=== PATIENT | male | born 1955 | race Caucasian/White ===

== ENCOUNTER 2016-06-01 18:48 | Inpatient (IN) | payer OTHER ==
--- NOTE | ~2016-06-01 | CR72 ---
[facility] A Service of [facility] & [facility] RADIOLOGY TEXT RESULTS PATIENT: HUE COTTON LOCATION: CEDOF 19999-78 : 53 UNIT #: [id number] AGE: [address]: Susie Guillen MD SEX: M ORDER DR: [id number] [facility] [address] [place], [place] [address] [id number] I MR#: [id number] Acc #: [id number] NAME: HUE COTTON : 1955 SEX: M STUDY DATE/TIME: 06/01/2016 18:58 UNIT: CEDOF ROOM: 08429 STUDY DESCRIPTION: CR Chest Single View Portable Attending Physician: Susie Guillen M.D. Ordering Physician: Ronaldo Nicholson D.O. Primary Care Physician: No Primary Care Physician MEDICAL IMAGING REPORT This report is preliminary unless electronic signature is present EXAM Chest x-ray HISTORY Headache, neck pain, radiates into upper back. Symptoms started at 05:00 a.m. no injury. History of pneumonia, sepsis, renal failure, smoker, hypertension and COPD. COMMENT Frontal views of the chest reviewed from 18:58 06/01/2016. 2 films submitted. Comparison 05/01/2016. There is mild cardiac silhouette enlargement. There is underlying chronic lung disease with distortion of pulmonary parenchymal architecture but I believe there is worse airspace disease/interstitial lung disease at the right base when comparison is made to the earlier film. Disease at the left base probably similar. There is no congestive failure, pleural effusion or pneumothorax. Heart size is top normal and unchanged. IMPRESSION Underlying chronic lung disease with some probable worsening of airspace/interstitial disease at the right base. No change in the appearance of the left base when comparison is made to 05/01/2016. No congestive failure, pleural effusion or pneumothorax. Dictated by... Lucretia Argueta M.D. THIS IS AN ELECTRONICALLY VERIFIED REPORT Lucretia Argueta M.D. at 06/02/2016 12:18 PM SAC/df TD: 06/02/2016 11:55 [facility] A Service of [facility] & [facility] RADIOLOGY TEXT RESULTS PATIENT: HUE COTTON LOCATION: [facility] 20027-23 : 53 UNIT #: [id number] AGE: [address]: Susie Guillen MD SEX: M ORDER DR: JOB #: [id number] MEDICAL IMAGING REPORT Page 1 of 1 COPY
--- NOTE | ~2016-06-01 | CO ---
Unit #: [id number] #: [id number] Patient: HUE COTTON [id number] [address] [address] [id number] I MR#: [id number] NAME: HUE COTTON ROOM: 319 Age: 60 Sex: M Admission Date: 06/02/2016 : 1955 Attending Physician: Susie Guillen M.D. Primary Care Physician: Primary Care Physician No Consultation Date: 06/02/2016 CONSULTATION REPORT REASON FOR CONSULTATION Pneumonia. CHIEF COMPLAINT Neck pain and cough, increasing sputum production. HISTORY OF PRESENT ILLNESS This 60-year-old male with past medical history significant for recurrent COPD exacerbation and chronic hypoxic respiratory failure, history of C difficile and abdominal surgery, presents with the complaint of cough, shortness of breath, increasing sputum production. I am seeing the patient at bedside. Denies any nausea, vomiting or diarrhea. PAST MEDICAL HISTORY 1. Chronic respiratory failure. 2. COPD. 3. Hypertension. 4. BPH. 5. Tobacco use. 6. Colon resection. 7. Colostomy. 8. PEG tube placement. 9. History of C difficile. 10. Diabetes mellitus. PAST SURGICAL HISTORY 1. PEG tube placement. 2. Toxic megacolon. 3. Hemorrhoidectomy. 4. TURP. 5. Hernia surgery. HOME MEDICATIONS As per MAR. Has been reviewed. ALLERGIES No known drug allergies. SOCIAL HISTORY Positive for smoking. No alcohol, no drug abuse. PHYSICAL EXAMINATION VITAL SIGNS: Temperature 98, pulse 67, respirations 12, blood pressure 130/70. Unit #: [id number] #: [id number] Patient: HUE COTTON NEUROLOGIC: Awake, alert, oriented. No neurologic deficits. HEENT: PERRLA. EOMI. NECK: Supple, no JVD. LUNGS: Bilateral air entry, bilateral mild rhonchi. ABDOMEN: Nontender, soft. Positive bowel sounds. EXTREMITIES: No edema. SKIN: No rashes, no ulcers. LYMPHATIC: No lymphadenopathy. DIAGNOSTIC STUDIES LABORATORY: Reviewed. IMAGING: Reviewed. ASSESSMENT AND PLAN 1. Acute exacerbation of chronic obstructive pulmonary disease. 2. Kdtaj-lz-gaczvib hypoxic hypercapnic respiratory failure. 3. Acute bronchitis. 4. Pneumonia. PLAN 1. Admit patient. 2. Continue broad-spectrum IV antibiotics. 3. GI and DVT prophylaxis. 4. I will order a noncontrast CT of the chest. 5. Procalcitonin level. 6. Further recommendations. 7. Please see orders for detailed plans. Dictated by... Tiara Franklin/pita TD: 06/04/2016 21:30 JOB #: [id number] CONSULTATION REPORT Page 1 of 1 X Talia Chow MD X CONSULTATION REPORT
--- NOTE | ~2016-06-01 | DS ---
Unit #: [id number] #: [id number] Patient: HUE COTTON [id number] [address] [address] [id number] I MR#: [id number] NAME: HUE COTTON ROOM: 319 Age: 60 Sex: M Admission Date: 06/02/2016 : 1955 Discharge Date: 06/05/2016 Attending Physician: Susie Guillen M.D. Primary Care Physician: Primary Care Physician No DISCHARGE SUMMARY DISCHARGE DIAGNOSES 1. Pneumonia. 2. Urinary tract infection. 3. Chronic obstructive pulmonary disease. 4. Diabetes. 5. History of coronary artery disease. 6. History of congestive heart failure. 7. Anemia of chronic disease. CONSULTS ON THIS HOSPITAL STAY Dr. Chow - pulmonary DIAGNOSTIC PROCEDURES DURING THIS HOSPITAL STAY 1. Chest x-ray on admission, chronic lung disease with the underlying air space disease in the right base. 2. CT of the head without contrast, on admission, qifyo-gz-bthzava sinusitis, small vessel disease, sequelae. No acute findings. 3. CT chest without contrast, marked improvement of the bilateral lower lobe tree-in-bud densities seen on prior studies, bronchial wall thickening consistent with the chronic bronchitis, 8 mm somewhat nodular subpleural density at the superior aspect of the left lower lobe, no change from April 2016 but new compared to January 2015, favored to be nodule scarring but neoplastic nodule could not be excluded, should follow up in three months recommended. 4. Blood culture negative. 5. Sputum culture showed pneumonias aeruginosa, sensitive to Levaquin. 6. Urine culture enterococcus cloacae, sensitive to Levaquin. HISTORY OF PRESENT ILLNESS AND HOSPITAL STAY Please refer to history and physical done by my colleague at presentation on this admission. ACTIVE PROBLEMS AND DIAGNOSIS Pneumonia, was treated with IV antibiotics, status post evaluation by pulmonary, stable to be discharged from pulmonary standpoint, continue p.o. Levaquin. Urinary tract infection, culture as above, again continue with the Levaquin. Chronic obstructive pulmonary disease, stable, continue bronchodilators, evaluation per pulmonary. Unit #: [id number] #: [id number] Patient: HUE COTTON History of coronary artery disease and diastolic congestive heart failure, stable, continue home medications. Anemia of chronic disease, stable, also, last hematocrit and hemoglobin was 28.1 and 8.6. DISCHARGE MEDICATIONS 1. Pulmicort inhaler b.i.d. 2. Perforomist nebulizer b.i.d. 3. DuoNeb inhaler q.4h 4. Flomax 0.4 mg at bedtime 5. Tylenol p.r.n. 6. Mag oxide 400 mg b.i.d. 7. Neurontin 100 mg q.i.d. 8. Acidophilus 100 mg p.o. daily 9. Bentyl q.i.d. p.r.n. for abdominal cramps 10. Seroquel 12.5 mg at bedtime 11. Home dose of Xanax 0.25 mg b.i.d. p.r.n. 12. Cardizem 60 mg b.i.d. 13. Guaifenesin 200 mg b.i.d. 14. Ditropan 5 mg p.o. t.i.d. 15. Niferex tablets daily 16. Singulair 10 mg daily 17. Multivitamin daily 18. Letona 10 q.6h p.r.n. 19. Protonix 40 mg daily 20. Levaquin 750 mg p.o. daily for ten days 21. KCL home dose daily 22. Folic acid 1 mg daily 23. Vitamin B 100 mg daily which is thiamine 24. Vitamin D 1000 units b.i.d. 25. Florastor 250 mg b.i.d. FOLLOWUP Follow up with primary care physician in hrt-vc-wiezz days, outpatient follow up with pulmonary. Dictated by... Tiara Suggs/ceasar TD: 06/06/2016 08:14 JOB #: [id number] DISCHARGE SUMMARY Page 1 of 1 X Paul Bolton MD X DISCHARGE SUMMARY
--- NOTE | ~2016-06-01 | HP ---
Unit #: [id number] #: [id number] Patient: HUE RIVAS [id number] [address] [place], [place] [address] [id number] I MR#: [id number] NAME: HUE RIVAS ROOM: 30358 Age: 60 Sex: M Admission Date: 06/02/2016 : 1955 Attending Physician: Susie Guillen M.D. Primary Care Physician: No Primary Care Physician HISTORY AND PHYSICAL CHIEF COMPLAINT Neck pain and cough with thick sputum. HISTORY OF PRESENT ILLNESS Mr. Rivas is a 60-year-old male who has had multiple admissions to the hospital. He resides in the senior care. Was recently discharged from the hospital on April 19, 2016 after being treated for COPD exacerbation. According to the patient, he had severe neck pain, which was going down the spine yesterday morning, and he was trying to avoid coming to the hospital. Took some medications, got a little bit better, but again in the evening he started having worsening of pain, and the patient was sent to the ER. The patient has received some pain medications. A CT scan of the head was done. Preliminary results are negative acute etiology. Also, LP has been done and, so far, negative. According to the patient, neck pain is much better. He actually feels well enough to go back. He is also complaining of cough, which has been going on for the last few days that is bringing up thick yellowish colored sputum, and sometimes it is very dark colored. He does not complain of fever, chills or rigors. He does not complain of chest pain. He does have wheezing, but according to him, he has wheezing all the time. No complaint of nausea, vomiting or dizziness or blurred vision. PAST MEDICAL HISTORY 1. Chronic respiratory failure, on home O2. 2. COPD. 3. Hypertension. 4. BPH. 5. Tobacco abuse. 6. History of colon resection with colostomy. 7. PEG tube placement. 8. Multiple UTIs in the past. 9. History of bladder outlet obstruction. Has a Jackson catheter. 10. History of coronary artery disease and diastolic congestive heart failure in the past. 11. Diabetes mellitus type 2. PAST SURGICAL HISTORY 1. History of toxic megacolon status post colon resection with colostomy and history of colon cancer. 2. PEG tube placement. 3. Hemorrhoidectomy. 4. TURP. Unit #: [id number] #: [id number] Patient: HUE RIVAS 5. Hernia surgery. 6. Nose surgery in the past. SOCIAL HISTORY The patient has history of tobacco abuse and continued to smoke 1/2 pack per day. No history of alcohol abuse or drug abuse. ALLERGIES None. FAMILY HISTORY The patient's sister was diagnosed with colon cancer. REVIEW OF SYMPTOMS As per history of present illness. There is no history of fever, chills or rigors. No history of chest pain. No history of abdominal pain. No history of nausea or vomiting. No history of blurred vision. No dizziness or syncopal episode. No history of leg swelling. PHYSICAL EXAMINATION GENERAL: The patient is lying in bed. Does not seem to be in any respiratory distress. He is able to flex his neck. VITAL SIGNS: Blood pressure is 109/82, respiratory rate 17, pulse 88, temperature 97.2, oxygen saturation 93%. HEENT: Head is normocephalic. The patient does have oxygen on with nasal cannula. NECK: Neck, at this time, is supple, and he is not complaining of pain. He is able to move his neck in all directions. BACK: No spine tenderness. RESPIRATORY: Chest has decreased air entry bilaterally. Wheezing is heard. CVS: S1, S2 positive. Regular rhythm. ABDOMEN: Soft. PEG tube is in place and colostomy bag in place. Seems to be stable. Abdomen is soft, nontender. Bowel sounds are positive. EXTREMITIES: Negative edema. : Jackson catheter is in place. RN LVN: The patient seems to be awake and alert. Oriented x3. Exam was limited. DIAGNOSTIC STUDIES LABORATORY: Lab workup done in the ER shows WBC 13.7, hemoglobin 9.6, hematocrit 30.7, platelet count 395. Sodium 138, potassium 3.7, chloride 97, bicarb 33, BUN 8, creatinine 0.4. Influenza A and B is negative. Urinalysis shows 3+ leukocyte esterase, nitrite positive. BNP is 34. CSF glucose is 64, protein 47, appearance clear, WBC count 0. Lactic acid 0.8, procalcitonin level 0.11. IMAGING: Chest x-ray, preliminary result - Right lower lobe infiltrate. Preliminary CT scan of the head shows chronic changes and cerebral atrophy. ASSESSMENT AND PLAN 1. The patient is being admitted to telemetry unit with severe neck pain, which has improved at this time. Could be musculoskeletal. CT scan of the head was done, which is stable. LP has been done; so far stable. 2. Right lower lobe infiltrate. Possible healthcare-acquired pneumonia. Unit #: [id number] #: [id number] Patient: HUE RIVAS The patient is being started on broad-spectrum IV antibiotics. Dr. Chow will be consulted. 3. Probable UTI. Urine culture has been sent. The patient does have 3+ leukocyte esterase. He does have indwelling Jackson catheter. 4. Chronic obstructive pulmonary disease. Seems to be stable. Continue home medications. 5. Diabetes mellitus. Do Accu-Cheks a.c. and h.s. and insulin sliding scale as needed. 6. Hypertension. Seems to be stable. 7. History of seizure disorder in the past, although details are not known. 8. Home medications have been reviewed and adjusted. Please refer to med/rec. 9. Plan of care has been discussed with the patient. Please refer to progress note for further orders. Dictated by Tiara Barragan/sia TD: 06/02/2016 14:58 JOB #: [id number] HISTORY AND PHYSICAL Page 1 of 1 X Susie Guillen MD X HISTORY AND PHYSICAL
--- NOTE | ~2016-06-01 | XA166 ---
[facility] A Service of [facility] & [facility] RADIOLOGY TEXT RESULTS PATIENT: HUE COTTON LOCATION: C3A PC 319-01 : 53 UNIT #: [id number] AGE: [address]: Susie Guillen MD SEX: M ORDER DR: [id number] [facility] [address] [place], [place] [address] [id number] I MR#: [id number] Acc #: [id number] NAME: HUE COTTON : 1955 SEX: M STUDY DATE/TIME: 06/03/2016 14:28 UNIT: C3A PCU ROOM: 319 STUDY DESCRIPTION: XA PICC Line Placement WO Port Attending Physician: Susie Guillen M.D. Ordering Physician: Susie Guillen M.D. Primary Care Physician: Primary Care Physician No MEDICAL IMAGING REPORT This report is preliminary unless electronic signature is present EXAM PICC line insertion, 06/03/2016 CLINICAL HISTORY IV access needed PRE-PROCEDURE The procedure was explained to the patient and/or patient bilingual sales representative including risks, benefits, potential complications and potential for alternative forms of treatment. Informed consent was obtained, and prior to initiating the procedure a formal timeout procedure was performed. PROCEDURE Using full standard sterile barrier technique, including caps, gowns, gloves, masks, as well as sterile skin preparation and standard sterile draping, the right arm was prepped and draped in the usual fashion, and real-time sterile ultrasound guidance was used to localize an arm vein and to confirm vessel patency. A hard copy ultrasound image was recorded. After local anesthesia with 1% Xylocaine, the vein was punctured using real-time sterile ultrasound guidance, and an 0.018 guidewire was advanced into the superior vena cava, using fluoroscopic guidance. A 5 Israeli dual-lumen PICC was then measured and deployed with the tip positioned in the superior vena cava. The position of the line was documented with a radiographic image. The line was secured in place with an adhesive dressing and an antibiotic patch was applied. Total fluoro time was 0.4 minutes. Single spot image. IMPRESSION Successful placement of a 5-Israeli dual-lumen PowerPICC via the right arm under ultrasound and fluoroscopic guidance. The tip of the PICC is in good position in the superior vena cava. [facility] A Service of [facility] RADIOLOGY TEXT RESULTS PATIENT: HUE COTTON LOCATION: C3A 319-01 : [birth year] UNIT #: [id number] AGE: [address]: Susie Guillen MD SEX: M ORDER DR: Dictated by... Fredy Sebastian M.D. THIS IS AN ELECTRONICALLY VERIFIED REPORT Fredy Sebastian M.D. at 06/11/2016 4:56 PM NANCY/carol TD: 06/07/2016 13:15 JOB #: [id number] MEDICAL IMAGING REPORT Page 1 of 1 COPY
--- NOTE | ~2016-06-01 | CT57 ---
[facility] A Service of [facility] RADIOLOGY TEXT RESULTS PATIENT: HUE COTTON LOCATION: C3A 319-01 : [birth year] UNIT #: [id number] AGE: [address]: Susie Guillen MD SEX: M ORDER DR: [id number] [facility] [address] [place], [place] [address] [id number] I MR#: [id number] Acc #: [id number] NAME: HUE COTTON : 1955 SEX: M STUDY DATE/TIME: 06/03/2016 14:33 UNIT: A PCU ROOM: 319 STUDY DESCRIPTION: CT Chest Wo Cont Attending Physician: Susie Guillen M.D. Ordering Physician: Susie Guillen M.D. Primary Care Physician: No Primary Care Physician MEDICAL IMAGING REPORT This report is preliminary unless electronic signature is present EXAM CT chest 06/03/2016 HISTORY COPD, cardiac hypertension, stroke, toxic megacolon, pneumonia, upper back pain since 06/01/2016. TECHNIQUE CT chest performed without administration of intravenous contrast. This CT exam was performed with one or more of the following radiation dose reduction techniques: automatic exposure control, adjustment of mA and/or kV according to patient size, and iterative reconstruction. COMPARISON STUDIES Comparison 04/14/2016 FINDINGS Thyroid unremarkable. No axillary adenopathy. No mediastinal adenopathy. There are small subcentimeter mediastinal nodes stable to marginally less pronounced than on prior study. Heart normal in size. Trace pericardial fluid. No change. Coronary arterial calcifications. No pleural effusion. The visualized portions of the liver are unremarkable. The gallbladder is decompressed. No biliary dilatation. Spleen, pancreas, adrenal glands, left upper renal pole unremarkable. Esophagus unremarkable. Gastrostomy tube unchanged. Visualized stomach, small bowel otherwise unremarkable. The pulmonary parenchyma shows underlying emphysema. Mild bronchial wall thickening. Likely reflecting some degree of underlying chronic bronchitis. Bronchial wall thickening more pronounced in the mid to lower lung zones bilaterally. It is stable to slightly improved in the bilateral ifj-te-adinz lung zones, with particular improvement in the left wdw-fw-nbwyu lung zone though it remains more pronounced overall on the left than right. There are mild STS. [facility] A Service of [facility] RADIOLOGY TEXT RESULTS PATIENT: HUE COTTON [id number] [birth year] UNIT #: [id number] AGE: [address]: Susie Guillen MD SEX: M ORDER DR: linear densities in the dependent portions of the lungs bilaterally favored to represent combination of scarring and linear atelectasis. The patchy tree-in-bud densities seen on prior examination have almost completely resolved. No residual tree-in-bud densities in the right lower lobe. Some very minimal residual tree in bud densities left lower lobe. There is an area of somewhat nodular subpleural density in the most superior aspect of the superior segment of the left lower lobe. No change from April 2016. New compared to a CT of the chest dated 01/25/2015. I favor that this is an area of subpleural scarring. True pulmonary nodule not excluded. 3-month CT followup recommended. Band-like area of scarring in the lateral upper to mid right lower lobe stable. Scattered atherosclerotic arterial calcifications in coronary and systemic circulation. No aneurysm. Bony structures show no acute appearing abnormality. IMPRESSION 1. There has been a marked improvement in the bilateral lower lobe reticulonodular/tree-in-bud densities seen on prior study from April 14, 2016. Findings in the right lower lobe have completely resolved. Findings in the left lower lobe are almost completely resolved. 2. There is underlying baseline bronchial wall thickening consistent with component of chronic bronchitis. Bronchial wall thickening more pronounced in the nmz-be-sxakv lung zones bilaterally. Bronchial wall thickening remains more pronounced in the left qtv-fz-kstvr lung zone than right but there has been improvement in the left npy-cq-oqrzi lung zone. 3. There are areas of linear scarring and atelectasis which are stable. See above. 4. 8 mm somewhat nodular subpleural density at the most superior aspect of the left lower lobe superior segment. No change from April 2016 but new compared to January 2015. I favor that this is an area of somewhat nodular scarring but true neoplastic nodule not excluded, and short-interval followup in 3 months is strongly recommended given the patient's underlying emphysema. 5. Atherosclerotic arterial calcifications in the coronary and systemic circulation. 6. Gastrostomy tube. No acute-appearing abnormality in the visualized upper abdomen. Dictated by... Carlos De La Torre M.D. THIS IS AN ELECTRONICALLY VERIFIED REPORT Carlos De La Torre M.D. at 06/04/2016 8:05 PM [place] TD: 06/03/2016 16:40 JOB #: [id number] [facility] A Service of [facility] RADIOLOGY TEXT RESULTS PATIENT: HUE COTTON LOCATION: [facility] 319-01 : 53 UNIT #: [id number] AGE: [address]: Susie Guillen MD SEX: M ORDER DR: MEDICAL IMAGING REPORT Page 1 of 1 COPY
--- NOTE | ~2016-06-01 | CT71 ---
[facility] A Service of [facility] RADIOLOGY TEXT RESULTS PATIENT: HUE COTTON LOCATION: [facility] 14508-06 : 53 UNIT #: [id number] AGE: [address]: Susie Guillen MD SEX: M ORDER DR: [id number] [facility] [address]. [place], [place] [address] [id number] MR#: [id number] Acc #: [id number] NAME: HUE COTTON : 1955 SEX: M STUDY DATE/TIME: 06/01/2016 20:23 UNIT: [facility] ROOM: 27041 STUDY DESCRIPTION: CT Head Wo Contrast Attending Physician: Susie Guillen M.D. Ordering Physician: Ronaldo Nicholson D.O. Primary Care Physician: Primary Care Physician No MEDICAL IMAGING REPORT This report is preliminary unless electronic signature is present EXAM Head CT without contrast HISTORY Head and neck pain. No injury. Headache since about 5 a[address] today. TECHNIQUE [address] examination was performed with one or more of the following radiation dose reduction techniques: automatic exposure control, adjustment of mA and/or kV according to patient size, and iterative reconstruction. COMMENT Routine noncontrast head CT is reviewed. The comparison study is from 02/15/2016. There is no displaced calvarial fracture. Mastoid air cells are clear. 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 Findings therefore consistent with acute on chronic sinusitis. Milder mucosal disease right maxillary sinus. Prominent vascular calcifications at the base of the brain. No extraaxial fluid collection. The patient has mild generalized atrophy and there is mild white matter low-attenuation most apparent periventricular white matter nonspecific likely due to small vessel disease. No acute intracranial hemorrhage. No acute cortical infarct is suspected. No significant change from prior. IMPRESSION 1. Evidence of acute on chronic sinusitis left maxillary sinus. 2. Redemonstration of probable sequela of small vessel disease, [facility] A Service of [facility] RADIOLOGY TEXT RESULTS PATIENT: HUE COTTON LOCATION: [employer] [address]7736-82 : 53 UNIT #: [id number] AGE: [address]: Susie Guillen MD SEX: M ORDER DR: atherosclerotic vascular calcifications and generalized atrophy. No acute intracranial abnormality is appreciated. Dictated by... Lucretia Argueta M.D. THIS IS AN ELECTRONICALLY VERIFIED REPORT Lucretia Argueta M.D. at 06/02/2016 12:20 PM OJSI/lacey TD: 06/02/2016 11:43 JOB #: [id number] MEDICAL IMAGING REPORT Page 1 of 1 COPY
[~2016-06-01 18:48] MED LIST: ACETAMINOPHEN PO; ACIDOPHILUS1 CA1 PO; ADVAIR 115-21 INH; ALBUTEROL17 GM INH; ALBUTEROL20 ml INH; ATIVAN PO; BENTYL10 MG PO; BUDESONIDE0.5 MG/2 M INH; CARDIZEM60 M1 PO; COMBIVENT INH14.7 GM INH; COMBIVENT U/D3 M1 INH; DESYREL100 MG DOB; DIASENSE MAGNE400 MG PO; DITROPAN5 MG PO; DOXYCYCLINE HY100 M1 PO; DOXYCYCLINE HY100 M3 PO; DOXYCYCLINE PO; EC-NAPROSYN500 MG PO; FERREX 150 PLU1 EACH PO; FLEXERIL10 MG PO; FLOMAX0.4 M1 PO; FLORASTOR PO; FOLIC ACID1 MG PO; GUAIFENESIN1200 M1 PO; HUMIBID-LA600 MG PO; IBUPROFEN PO; IPRATR-ALBUTEROL3 ML INH; KETOPROFEN PO; KLOR-CON SPRIN10 MEQ PO; LISINOPRIL10 MG PO; MONTELUKAST SOD10 MG PO; NEURONTIN100 MG PO; NORCO 10-325 TA1 TAB PO; NORVASC PO; OXYGEN; PANTOPRAZOLE SO40 MG PO; PEPCID AC20 MG PO; PERFOROMIS20 MCG/2 M INH; PREDNISONE PO; PROSCAR5 MG PO; QUETIAPINE FUMA25 MG PO; RAPAFLO8 MG PO; ROBITUSSIN A-C S5 ML PO; ROBITUSSIN-DM120 ML PO; SYMBICORT INH; TAB-A-VITE WIT1 EACH PO; VITAMIN B-1100 M1 PO; VITAMIN D-32000 UNI2 PO; VITAMIN D2000 UNIT PO; XANAX0.5 M1 PO; ZITHROMAX PO
[2016-06-01 19:25] LABS: BASOPHIL# 0.1 X10e3 (0-0.3); BASOPHIL% 0.4 % (0-2.5); EOSINOPHIL# 0.4 X10e3 (0-0.7); EOSINOPHIL% 2.8 % (0.0-7.0); HEMATOCRIT 30.7 % (38.0-50.0); HEMOGLOBIN 9.6 gm/dL (13.0-16.0); LYMPHOCYTE# 4.1 X10e3 (1.0-3.5); LYMPHOCYTE% 30.1 % (17.0-45.0); MEAN CELL VOLUME 82.2 FL (83-96); MEAN CORPUSCULAR HEMOGLOBIN 25.7 PG (28-34); MEAN CORPUSCULAR HGB CONC 31.2 g/dL (30-36); MEAN PLATELET VOLUME 7.9 FL (6.5-11.5); MONOCYTE# 1.7 X10e3 (0-1.0); MONOCYTE% 12.6 % (3.0-12.0); NEUTROPHIL# 7.4 X10e3 (1.5-7.1); NEUTROPHIL% 54.1 % (40-75); PLATELET COUNT 395 X10e3 (140-420); RED BLOOD COUNT 3.73 X10e (3.90-5.60); RED CELL DISTRIBUTION WIDTH 19.5 % (11.0-15.5); WHITE BLOOD COUNT 13.7 X10e3 (4.0-10.5)
[2016-06-01 19:30] LABS: DIFF IND NO
[2016-06-01 19:48] LABS: ALKALINE PHOSPHATASE 76 U/L (32-92); ALT (SGPT) 22 U/L (10-40); AST (SGOT) 55 U/L (10-42); BILIRUBIN, DIRECT 0.1 mg/dL (0.0-0.2); BILIRUBIN,INDIRECT 0.3 mg/dL (0.0-0.9); BILIRUBIN,TOTAL 0.4 mg/dL (0.2-2.0); BLOOD UREA NITROGEN 8 mg/dL (9-23); CALCIUM SERUM 9.5 mg/dL (8.4-10.2); CARBON DIOXIDE 33 mmol/L (22-31); CHLORIDE 97 mmol/L (100-111); CREATININE SERUM 0.4 mg/dL (0.6-1.4); GLOM FILT RATE Estimated ABOVE60 mL/min (>60); GLUCOSE FASTING 94 mg/dL (70-110); POTASSIUM 3.7 mmol/L (3.5-5.1); PROTEIN TOTAL SERUM 7.8 g/dL (6.0-8.3); SODIUM 138 mmol/L (135-145)
[2016-06-01 19:49] LABS: PARTIAL THROMBOPLASTIN TIME 24.1 SECONDS (23.5-31.3); PROTHROMBIN TIME (PATIENT) 10.5 SECONDS (9.6-11.5)
[2016-06-01 19:56] LABS: INFLUENZA A NEG (NEG); INFLUENZA B NEG (NEG)
[2016-06-01 20:03] LABS: URINE SOURCE CLEAN CATCH
[2016-06-01 20:10] LABS: URINE APPEARANCE CLEAR; URINE BILIRUBIN NEG (NEG); URINE BLOOD 3+ (NEG); URINE COLOR YELLOW; URINE GLUCOSE NEG (NEG); URINE KETONE NEG (NEG); URINE LEUKOCYTE ESTERASE 3+ (NEG); URINE NITRATE POS (NEG); URINE PROTEIN NEG (NEG); URINE SPECIFIC GRAVITY 1.008 (1.003-1.035); URINE UROBILINOGEN 0.2 MG/DL (NEG)
[2016-06-01 20:13] LABS: CULTURE INDICATED? YES; URINE BACTERIA AUWI NEG (NEGATIVE); URINE SQUAMOUS EPITHELIAL CELL NONE SEEN /[HPF]; UWBCS1 AUWI 50-100 (0-5)
[2016-06-02 00:07] LABS: GLUCOSE-CSF 64 mg/dL (50-80); PROTEIN-CSF 47 mg/dL (15-45)
[2016-06-02 00:23] LABS: CSF APPEARANCE CLEAR (CLEAR); CSF RBC 1 CMM (0); CSF TUBE NUMBER 1; CSF WBC 0 CMM (0-8); CSF XANTHACHROMIC NO
[2016-06-02 00:40] LABS: CSF APPEARANCE CLEAR (CLEAR); CSF RBC 1 CMM (0); CSF TUBE NUMBER 4; CSF WBC 0 CMM (0-8); CSF XANTHACHROMIC NO
[2016-06-03 02:52] LABS: HEMATOCRIT 28.9 % (38.0-50.0); HEMOGLOBIN 8.9 gm/dL (13.0-16.0); MEAN CELL VOLUME 82.4 FL (83-96); MEAN CORPUSCULAR HEMOGLOBIN 25.5 PG (28-34); MEAN CORPUSCULAR HGB CONC 30.9 g/dL (30-36); MEAN PLATELET VOLUME 7.7 FL (6.5-11.5); RED BLOOD COUNT 3.51 X10e (3.90-5.60); RED CELL DISTRIBUTION WIDTH 18.7 % (11.0-15.5)
[2016-06-03 03:27] LABS: BLOOD UREA NITROGEN 18 mg/dL (9-23); BUN/CREATININE RATIO 25.71; CALCIUM SERUM 9.5 mg/dL (8.4-10.2); CARBON DIOXIDE 31 mmol/L (22-31); CHLORIDE 100 mmol/L (100-111); CREATININE SERUM 0.7 mg/dL (0.6-1.4); GLOM FILT RATE Estimated ABOVE60 mL/min (>60); GLUCOSE FASTING 134 mg/dL (70-110); SODIUM 140 mmol/L (135-145)
[2016-06-04 04:57] LABS: HEMATOCRIT 28.1 % (38.0-50.0); HEMOGLOBIN 8.6 gm/dL (13.0-16.0); MEAN CELL VOLUME 83.4 FL (83-96); MEAN CORPUSCULAR HEMOGLOBIN 25.4 PG (28-34); MEAN CORPUSCULAR HGB CONC 30.5 g/dL (30-36); MEAN PLATELET VOLUME 8.3 FL (6.5-11.5); RED BLOOD COUNT 3.37 X10e (3.90-5.60); WHITE BLOOD COUNT 11.2 X10e3 (4.0-10.5)
[2016-06-04 08:23] LABS: ALBUMIN SERUM 2.7 g/dL (3.5-5.0); BILIRUBIN,TOTAL 0.4 mg/dL (0.2-2.0); CALCIUM SERUM 8.9 mg/dL (8.4-10.2); CREATININE SERUM 0.6 mg/dL (0.6-1.4); GLOM FILT RATE Estimated 107.8 mL/min (>60); PROTEIN TOTAL SERUM 6.5 g/dL (6.0-8.3)
== END 2016-06-06 20:20 | DRG 189 ==
LOC: CED 18:48 → CEDOF 06-02 02:10 → C3A PCU 06-02 16:04
PROVIDERS: Emergency Medicine; Hospitalist; Physician Assistant Medical
DX: J96.21 Acute and chronic respiratory failure with hypoxia (principal); J16.8 Pneumonia due to other specified infectious organisms; I11.0 Hypertensive heart disease with heart failure; J44.0 Chronic obstructive pulmonary disease with (acute) lower respiratory infection; N39.0 Urinary tract infection, site not specified; I50.30 Unspecified diastolic (congestive) heart failure; R56.9 Unspecified convulsions; B96.89 Other specified bacterial agents as the cause of diseases classified elsewhere; E11.9 Type 2 diabetes mellitus without complications; J44.1 Chronic obstructive pulmonary disease with (acute) exacerbation; I25.10 Atherosclerotic heart disease of native coronary artery without angina pectoris; F17.210 Nicotine dependence, cigarettes, uncomplicated; D63.8 Anemia in other chronic diseases classified elsewhere; J20.9 Acute bronchitis, unspecified; Z99.81 Dependence on supplemental oxygen; N40.0 Benign prostatic hyperplasia without lower urinary tract symptoms; J96.22 Acute and chronic respiratory failure with hypercapnia; M54.2 Cervicalgia; Z90.49 Acquired absence of other specified parts of digestive tract
CPT/HCPCS: 36415; 70450; 71010; 71250; 76937; 77001; 80048; 80053; 80076; 80200; 80202; 81003; 82308; 82945; 82947; 83605; 83880; 84157; 85025; 85027; 85610; 85730; 87040; 87070; 87077; 87086; 87088; 87186; 87205; 87804; 89051; 94640; 94760; 96365; 96375; 99285; C1751; J0696; J1100; J1650; J1815; J2270; J2405; J2543; J2765; J3260; J3370

== ENCOUNTER 2016-06-29 12:41 | Inpatient (IN) | payer OTHER ==
--- NOTE | ~2016-06-29 | EKG ---
PATIENT: HUE COTTON UNIT #: [id number] Ventricular Rate: 78 BPM Atrial Rate: 78 BPM P-R Interval: 130 ms QRS Duration: 100 ms Q-T Interval: 362 ms QTC Calculation(Bezet): 412 ms P Leland: 48 degrees Calculated R Leland: 55 degrees Calculated T Leland: 59 degrees Diagnosis Line: Normal sinus rhythm Diagnosis Line: Normal ECG Diagnosis Line: When compared with ECG of 18-APR-2016 13:25, Diagnosis Line: Premature atrial complexes are no longer Present Diagnosis Line: Confirmed by GUALBERTO TEJEDA MD ([id number]) on 06/30/2016 Diagnosis Line: 7:14:49 PM INTERPRETING MD: ILEANA HEREDIA
--- NOTE | ~2016-06-29 | CR72 ---
[facility] A Service of [facility] RADIOLOGY TEXT RESULTS PATIENT: HUE COTTON LOCATION: [facility] : [birth year] UNIT #: [id number] AGE: [address]: Susie Guillen MD SEX: M ORDER DR: [id number] [facility] [address] [facility]. [place], [place] [address] [id number] I MR#: [id number] Acc #: [id number] NAME: HUE COTTON : 1955 SEX: M STUDY DATE/TIME: 06/29/2016 15:49 UNIT: [facility] ROOM: 60028 STUDY DESCRIPTION: CR Chest Single View Portable Attending Physician: Susie Guillen M.D. Ordering Physician: Ronaldo Nicholson D.O. Primary Care Physician: Shadi Kirkland M.D. MEDICAL IMAGING REPORT This report is preliminary unless electronic signature is present EXAM AP portable chest. DATE OF EXAM 06/29/2016 HISTORY Low oxygen saturations. Hypotension. Weakness. Symptoms began on 06/29/2016. COPD. COMPARISON AP portable chest 06/29/2016. CT Abdomen, lung windows, 06/29/2016. FINDINGS Airspace disease is present in the bilateral lower lobes, greatest in the medial left lower lobe. No definite pleural effusion. Emphysematous changes. Right IJ central line tip extends to the brachiocephalic - upper SVC junction. No visible pneumothorax. IMPRESSION 1. Left greater than right medial basilar airspace disease. Correlate clinically for pneumonia or aspiration. 2. Right IJ central line tip terminates at the brachiocephalic - SVC junction. No visible pneumothorax. 3. Emphysema. Dictated by... Magdalene Meng M.D. THIS IS AN ELECTRONICALLY VERIFIED REPORT Magdalene Meng M.D. at 06/30/2016 8:34 AM LL/jt [facility] A Service of [facility] RADIOLOGY TEXT RESULTS PATIENT: HUE COTTON LOCATION: [facility] : 53 UNIT #: [id number] AGE: [address]: Susie Guillen MD SEX: M ORDER DR: TD: 06/29/2016 20:59 JOB #: [id number] MEDICAL IMAGING REPORT Page 1 of 1 COPY
--- NOTE | ~2016-06-29 | CO ---
Unit #: [id number] #: [id number] Patient: HUE RIVAS [id number] [address] [address] [id number] I MR#: [id number] NAME: HUE RIVAS ROOM: 340 Age: 60 Sex: M Admission Date: 06/29/2016 : 1955 Attending Physician: Susie Guillen M.D. Primary Care Physician: Shadi Kirkland M.D. Consultation Date: 07/02/2016 CONSULTATION REPORT HISTORY OF PRESENT ILLNESS Mr. Rivas is a 60-year-old gentleman who is admitted to the hospital from the [facility] for health care associated pneumonia. While here he was noted to pass a small mucoid stool per rectum. 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 The patient states that he had a similar small stool about five months ago. Otherwise, his ileostomy is working very well. He is tolerating a regular diet. PAST MEDICAL HISTORY 1. Chronic obstructive pulmonary disease on home oxygen. 2. Diabetes. 3. Coronary artery disease. 4. Congestive heart failure. 5. Chronic anemia. 6. Benign prostatic hypertrophy with bilateral hydronephrosis. 7. Chronic bladder outlet obstruction. 8. He has had a PEG tube placed as a subtotal colectomy with ileostomy formation. 9. Chronic indwelling Jackson. 10. Hemorrhoidectomy. 11. Transurethral resection of the prostate. 12. Nose surgery. 13. Hernia surgery. ALLERGIES No allergies to medications. MEDICATIONS AT HOME Include: 1. Neurontin 2. Bentyl 3. Acidophilus 4. Vitamin D3 5. Potassium. 6. Ipratropium [place] 7. Folic acid 8. Iron replacement 9. Magnesium 10. Cheratussin 11. Ditropan 12. Diltiazem 13. Guaifenesin Unit #: [id number] #: [id number] Patient: HUE RIVAS 14. Probiotic 15. Perforomist 16. Multivitamins 17. Protonix 18. Rapaflo 19. Seroquel 20. Montelukast 21. Tylenol 22. Xanax 23. Hydrocodone FAMILY HISTORY Colon cancer. SOCIAL HISTORY Currently a resident in a [facility], previous history of smoking and no current history of smoking or tobacco abuse. REVIEW OF SYSTEMS Unremarkable. CURRENT PHYSICAL EXAMINATION GENERAL: The patient is awake, alert, and oriented, no acute distress. VITAL SIGNS: Temperature 97.8, pulse 74, respirations 18, blood pressure is 128/85. HEENT: Unremarkable. CARDIAC EXAM: Regular rhythm. LUNGS: Clear. ABDOMEN: Soft. He has a functioning and viable stoma in the right lower quadrant consistent with ileostomy. The abdomen is soft. He has a midline incision with a few sutures that are working through the skin but no hernia. EXTREMITIES: Trace edema. NEUROLOGIC: Otherwise grossly intact. DIAGNOSTIC STUDIES LABORATORY: Except for a potassium of 3.4, basic metabolic panel is unremarkable. White count is 11.1, hemoglobin 8.6, platelets 373,000. IMAGING: CT of the chest, emphysema with bronchiectasis, infiltrate right middle and right lower lobes, consistent with a pneumonia. CT of the abdomen, shows no acute findings, confirmed right lower quadrant ileostomy and subtotal colectomy. Some patchy air space consolidation. ASSESSMENT/PLAN Ajabq-hlx-legz-old gentleman, has had a previous subtotal colectomy has a functioning end ileostomy. He has had two small mucousy stools in the last five months. Depending upon the residual amount of rectosigmoid he could continue to have some secretion and formation of mucous and stool balls in the residual rectosigmoid which he could occasionally pass. This is not unusual or pathologic and is of no concern. I will order Fleets enema to try to clear any residual mucous or stool from the rectosigmoid but otherwise is of no concern. Dictated by... Unit #: [id number] #: [id number] Patient: LULATiara Sebastian/ceasar TD: 07/03/2016 08:01 JOB #: [id number] CONSULTATION REPORT Page 1 of 1 X Arun Orosco MD X CONSULTATION REPORT
--- NOTE | ~2016-06-29 | HP ---
Unit #: [id number] #: [id number] Patient: SHELDON RIVAS [id number] [facility]. [place], [place] [address] [id number] I MR#: [id number] NAME: SHELDON RIVAS ROOM: 20787 Age: 60 Sex: M Admission Date: 06/29/2016 : 1955 Attending Physician: Susie Guillen M.D. Primary Care Physician: Shadi Kirkland M.D. HISTORY AND PHYSICAL CHIEF COMPLAINT Shortness of breath. HISTORY OF PRESENT ILLNESS Mr. Sheldon Rivas is a 60-year-old male who was recently discharged from [facility] to a [place] [facility]. He was treated for urinary tract infection, pneumonia and COPD. Was discharged on June 05, 2016. He was doing well until yesterday morning. According to the patient, he was not feeling well. He was getting short of breath. His saturation was checked, and it was low, about 70% to 80%. He EMS was called, and the patient was transferred to ER. The patient was found to be hypotensive and in respiratory distress. The patient was started on IV fluids. He received a 2-liter bolus, and chest x-ray showed possible pneumonia. Was started on broad-spectrum antibiotics. According to the patient, he is already feeling better. His shortness of breath has improved. He did not have chest pain. He does cough but did not have much sputum. No complaint of abdominal pain. No complaint of fever, chills or rigors, although 2 days ago he did not eat much because he was not feeling well. PAST MEDICAL HISTORY 1. History of COPD. 2. Chronic respiratory failure, on home O2. 3. Diabetes mellitus type 2. 4. History of coronary artery disease. 5. History of diastolic congestive heart failure. 6. History of chronic anemia. 7. History of BPH. 8. History of PEG tube placement. 9. History of colon resection with colostomy bag. 10. History of bladder outlet obstruction. Has chronic Jackson catheter. PAST SURGICAL HISTORY 1. History of toxic megacolon status post colon resection with colostomy with history of colon cancer. 2. Status post PEG tube placement, which is still present. 3. Hemorrhoidectomy. 4. TURP. 5. History of nose surgery in the past. 6. Hernia surgery. SOCIAL HISTORY The patient is a resident of a [place] [facility]. He has history of smoking and Unit #: [id number] #: [id number] Patient: SHELDON RIVAS continues to smoke. No history of alcohol abuse or drug abuse. ALLERGIES No known drug allergies. FAMILY HISTORY The patient's sister had colon cancer. REVIEW OF SYMPTOMS The patient does not complain of any fever, chills or rigors. No complaint of chest pain. No complaint of palpitations. No complaint of abdominal pain. No complaint of ear, nose and throat problem. No complaint of constipation. He does have colostomy bag and seems to be doing well. No complaint of dizziness or syncopal episode. The rest is as per history of present illness. HOME MEDICATIONS 1. Neurontin 100 mg through PEG q.i.d. 2. Bentyl 10 mg by PEG q.i.d. 3. Acidophilus daily. 4. Vitamin D3 1,000 daily. 5. Potassium 20 mEq daily. 6. Ipratropium inhaler q.4. 7. Folic acid through PEG tube daily. 8. Ferrex 150 mg daily. 9. Mag oxide 400 mg t.i.d. 10. Multivitamin daily. 11. Vitamin B1 daily. 12. Pantoprazole 40 mg daily. 13. Rapaflo 4 mg daily. 14. Ditropan 5 mg t.i.d. 15. Diltiazem 24 mg b.i.d. 16. Guaifenesin b.i.d. 17. Probiotic 250 mg b.i.d. 18. Perforomist 1 inhalation b.i.d. 19. Seroquel 12.5 mg at bedtime. 20. Singulair 10 mg daily. 21. Acetaminophen 500 mg q.4 p.r.n. 22. Xanax 0.25 mg b.i.d. 23. Hydrocodone q.6 p.r.n. PHYSICAL EXAMINATION GENERAL: The patient is being examined in the ER, room 11. VITAL SIGNS: He is on 4 liters O2 at this time, and saturation is 94%. Blood pressure is 150/85. On admission the patient's blood pressure was 71/51. Respiratory rate 18, pulse 91, temperature 96.2. The patient's T max has been 99.4. HEENT: Head is normocephalic. Eye movements are normal. NECK: Neck is supple. RESPIRATORY: Chest has decreased air entry bilaterally. Wheezing is heard, right more than left. CVS: S1, S2 positive. Regular rhythm. ABDOMEN: Soft and benign. PEG tube is in place. Colostomy bag is in place, and it does have some stool. Seems to be normal. EXTREMITIES: Negative edema. Pulses are palpable. TORCH CUTTER: The patient is awake, alert and oriented x3. No focal neurologic deficits. Unit #: [id number] #: [id number] Patient: SHELDON RIVAS DIAGNOSTIC STUDIES LAB WORKUP: WBC 14.4, hemoglobin 9, hematocrit 29.7, platelet count 371. Influenza A and B negative. PT is 10.4, INR 1. Lactic acid is 1.5. Urinalysis was done, which shows lots of WBCs and 3+ leukocyte esterase. BNP is 16. Sodium is 132, potassium 4.5, chloride 96, BUN 26, creatinine 1.4. IMAGING: CT scan of the abdomen and pelvis was done without contrast, which states development of some patchy airspace opacities in the right middle lobe and right lower lobe. CT scan of the head without contrast was done that showed no acute abnormalities. Chest x-ray again showed right medial bibasilar airspace disease. ASSESSMENT AND PLAN 1. The patient is being admitted to telemetry unit with a diagnoses of hypotension, which is resolved after IV fluid hydration; 2. Sepsis; 3. Probable healthcare-acquired pneumonia; 4. Acute hypoxic/hypercarbic respiratory failure secondary to above; 5. COPD exacerbation; 6. History of coronary artery disease with diastolic congestive heart failure; 7. Hypomagnesemia; 8. Hyponatremia; 9. Anemia; 10. History of diabetes mellitus type 2; 11. History of colon cancer status post resection status post colostomy. PLAN Admit to telemetry unit. Dr. Chow has been consulted. Broad-spectrum IV antibiotics are being started. IV Solu-Medrol is being started. Home medications have been reviewed and adjusted. The patient will have ABGs done today. Lovenox 40 mg subcu daily for DVT prophylaxis. Protonix 40 mg daily for GI prophylaxis has been started. Plan of care has been discussed with the patient at length. Dictated by Tiara Barragan TD: 06/30/2016 11:33 JOB #: [id number] Unit #: [id number] #: [id number] Patient: LULASHELDON HISTORY AND PHYSICAL Page 1 of 1 X Susie Guillen MD HISTORY AND PHYSICAL
--- NOTE | ~2016-06-29 | CT4 ---
[facility] A Service of [facility] RADIOLOGY TEXT RESULTS PATIENT: HUE COTTON LOCATION: [facility] : 53 UNIT #: [id number] AGE: [address]: Ronaldo Nicholson DO SEX: M ORDER DR: [id number] [facility] [address] [place], [place] [address] [id number] MR#: [id number] Acc #: [id number] NAME: HUE COTTON : 1955 SEX: M STUDY DATE/TIME: 06/29/2016 13:35 UNIT: [facility] ROOM: STUDY DESCRIPTION: CT Abd and Pelv Wo Cont Attending Physician: Ronaldo Nicholson D.O. Ordering Physician: Ronaldo Nicholson D.O. Primary Care Physician: Shadi Kirkland M.D. MEDICAL IMAGING REPORT This report is preliminary unless electronic signature is present EXAM CT abdomen and pelvis. INDICATION Hypotension. Hypoxia. Blurred vision. Mid to left-sided abdominal pain. TECHNIQUE CT of the abdomen and pelvis without contrast. Coronal and sagittal reconstructions were obtained. This CT exam was performed with one or more of the following radiation dose reduction techniques: automatic exposure control, adjustment of mA and/or kV according to patient size, and iterative reconstruction. COMPARISON CT abdomen and pelvis dated 04/14/2016. FINDINGS ABDOMEN: There is some chronic consolidation and mucous plugging within the left lower lobe. Mild bronchiectasis is noted. There is development of some patchy airspace opacities in the right middle lobe and right lower lobe. Correlate for any evidence of pneumonia. The liver is enlarged. There are morphologic features suggesting background cirrhosis. Gallbladder is not distended. The pancreas, spleen, and adrenal glands are within normal limits. There is generalized renal atrophy. No hydronephrosis. The bowel is not dilated. There is a right lower quadrant diverting ileostomy. Patient has undergone subtotal colectomy. The abdominal aorta is normal in caliber. Subcentimeter retroperitoneal lymph nodes are similar to the prior study. [facility] A Service of [facility] RADIOLOGY TEXT RESULTS PATIENT: HUE COTTON LOCATION: [facility] : 53 UNIT #: [id number] AGE: [address]: Ronaldo Nicholson DO SEX: M ORDER DR: PELVIS: Bladder is decompressed with a Jackson catheter. Prostate appears surgically absent. No enlarged pelvic or inguinal lymph nodes. No acute osseous abnormalities. IMPRESSION 1. Development of some patchy airspace opacities in the right middle lobe and right lower lobe. Correlate with any evidence of an acute pneumonia. 2. Chronic consolidation, mucus plugging, and bronchiectasis in the left lower lobe is unchanged. Dictated by... Jose Alfredo Marrero M.D. THIS IS AN ELECTRONICALLY VERIFIED REPORT Jose Alfredo Marrero M.D. at 06/29/2016 4:57 PM YARELIS/rosamaria TD: 06/29/2016 16:29 JOB #: [id number] MEDICAL IMAGING REPORT Page 1 of 1 COPY
--- NOTE | ~2016-06-29 | CR63 ---
[facility] A Service of [facility] RADIOLOGY TEXT RESULTS PATIENT: HUE COTTON LOCATION: [facility] 340-01 : 53 UNIT #: [id number] AGE: [address]: Susie Guillen MD SEX: M ORDER DR: [id number] [facility] [address] [place], [place] [address] [id number] I MR#: [id number] Acc #: [id number] NAME: HUE COTTON : 1955 SEX: M STUDY DATE/TIME: 06/30/2016 10:52 UNIT: [address] ROOM: [facility] STUDY DESCRIPTION: CR Chest 2 View Attending Physician: Susie Guillen M.D. Ordering Physician: Ed Doctor [id number] [facility] Primary Care Physician: Shadi Kirkland M.D. MEDICAL IMAGING REPORT This report is preliminary unless electronic signature is present EXAM PA and lateral chest INDICATION Followup support lines and tubes. Pneumonia, cough, shortness of breath. Symptoms for 3 days. COMPARISON Yesterday FINDINGS Stable right IJ central venous catheter. Stable atelectasis or scarring left base. No new infiltrates. Heart size stable. IMPRESSION No significant change in the appearance of the chest. Dictated by... Pilo Burkett M.D. THIS IS AN ELECTRONICALLY VERIFIED REPORT Pilo Burkett M.D. at 07/01/2016 7:53 AM LAUREEN/carol TD: 06/30/2016 14:05 JOB #: [id number] MEDICAL IMAGING REPORT Page 1 of 1 COPY
--- NOTE | ~2016-06-29 | CT71 ---
[facility] A Service of [facility] RADIOLOGY TEXT RESULTS PATIENT: HUE COTTON LOCATION: [facility] 340-01 : 53 UNIT #: [id number] AGE: [address]: Susie Guillen MD SEX: M ORDER DR: [id number] [facility] [address] [place], [place] [address] [id number] I MR#: [id number] Acc #: [id number] NAME: HUE COTTON : 1955 SEX: M STUDY DATE/TIME: 06/29/2016 13:23 UNIT: [facility] ROOM: 97943 STUDY DESCRIPTION: CT Head Wo Contrast Attending Physician: Susie Guillen M.D. Ordering Physician: Ronaldo Nicholson D.O. Primary Care Physician: Shadi Kirkland M.D. MEDICAL IMAGING REPORT This report is preliminary unless electronic signature is present EXAM CT head 06/29/2016 HISTORY Abdomen pain, middle and left side x5 years. Hypertension. Low O2 sats, blurred vision, weakness for 1 day, sent from [facility], history of colon cancer. TECHNIQUE CT head performed skull base through vertex without intravenous contrast. This CT exam was performed with one or more of the following radiation dose reduction techniques: automatic exposure control, adjustment of mA and/or kV according to patient size, and iterative reconstruction. COMPARISON STUDIES 06/01/2016. FINDINGS Some images degraded by streak/motion artifact. The brainstem is unremarkable. The cerebellum and cerebral hemispheres show overall preservation stanley matter-white matter differentiation. There are periventricular and deep white matter tract probable sequelae of chronic microvascular ischemia, not significantly changed from prior study. The midline structures are nondisplaced. No acute basal ganglia abnormality. Ventricles, cisterns and sulci show mild and stable generalized enlargement consistent with mild generalized atrophy. No intra- or extraaxial mass effect or abnormal intracranial fluid collection. There are cavernous carotid and distal vertebral arterial calcifications. The intraorbital soft tissues are unremarkable. Mucosal thickening in the ethmoid air cells and bilateral sphenoid sinuses. Probable mucous retention cysts in sphenoid sinuses. Thickening of the left maxillary STS. [facility] A Service of [facility] RADIOLOGY TEXT RESULTS PATIENT: HUE COTTON LOCATION: [facility] 340-01 : [birth year] UNIT #: [id number] AGE: [address]: Susie Guillen MD SEX: M ORDER DR: sinus fountain likely a consequence of chronic sinusitis. There is a small air-fluid level in the left maxillary sinus as well, indicating a component of acute sinusitis. Similar appearance on prior examination. There are cavernous carotid and distal vertebral arterial calcifications. IMPRESSION 1. No acute abnormality seen in brain. If patient has ongoing neurologic symptoms, consider follow-up imaging, preferably with MRI if patient is a candidate. 2. Re-demonstration of periventricular and deep white matter tract probable sequelae of chronic microvascular ischemia. 3. Mild generalized atrophy. 4. Vascular calcifications. 5. Mucous retention cysts in the bilateral sphenoid sinuses are stable. Mucosal thickening in the bilateral maxillary sinuses, left greater than right, as on prior study. Bony changes in the left maxillary sinus fountain, most consistent sequelae of chronic left maxillary sinusitis. 6. There continues to be an air-fluid level of the left maxillary sinus indicating a component of acute sinusitis. 7. Not mentioned in body of report above, chronic nasal bone fractures bilaterally. No change from prior study. There is no indication of acute traumatic bony abnormality. Dictated by... Carlos De La Torre M.D. THIS IS AN ELECTRONICALLY VERIFIED REPORT Carlos De La Torre M.D. at 06/30/2016 2:37 PM SUMI/steve TD: 06/29/2016 15:44 JOB #: [id number] MEDICAL IMAGING REPORT Page 1 of 1 COPY
--- NOTE | ~2016-06-29 | DS ---
Unit #: [id number] #: [id number] Patient: HUE RIVAS [id number] [address] [address] [id number] I MR#: [id number] NAME: HUE RIVAS ROOM: 340 Age: 60 Sex: M Admission Date: 06/29/2016 : 1955 Discharge Date: 07/03/2016 Attending Physician: Susie Guillen M.D. Primary Care Physician: Shadi Kirkland M.D. DISCHARGE SUMMARY FINAL DIAGNOSES 1. Acute hypoxic, hypercarbic respiratory failure. 2. Pneumonia. 3. Chronic obstructive pulmonary disease exacerbation. 4. History of coronary artery disease with diastolic congestive heart failure. 5. Hyponatremia. 6. Hypokalemia. 7. Hypomagnesemia. 8. Anemia. 9. Diabetes mellitus type 2. 10. History of colon cancer status post resection, status post colostomy. DISCHARGE MEDICATIONS 1. Prednisone 40 mg p.o. daily for three days, decrease 10 mg every three days until off. 2. Rapaflo 4 mg daily. 3. Vitamin D3 1,000 daily. 4. Folic acid 1 mg daily. 5. Potassium 20 mEq daily. 6. Protonix 40 mg daily. 7. Augmentin 875 mg p.o. twice a day until 07/08/2016. 8. Hydrocodone/acetaminophen 10/300 mg one tablet q.6 p.r.n. 9. Multivitamin daily. 10. Probiotic 250 mg b.i.d. 11. Singulair 10 mg daily. 12. Ferrex 150 mg daily. 13. Ditropan 5 mg t.i.d. 14. Diltiazem 60 mg b.i.d. 15. Xanax 0.25 mg b.i.d. p.r.n. 16. Seroquel 12.5 mg at bedtime. 17. Bentyl 10 mg q.i.d. 18. Neurontin 100 mg q.i.d. 19. Acidophilus continue home dose. 20. Magnesium oxide 400 mg t.i.d. 21. Tylenol 500 mg q.4 p.r.n. 22. Mini neb treatment q.i.d. and q.4 p.r.n. 23. Perforomist one puff inhaler b.i.d. 24. Oxygen to keep saturation above 94%. CONSULTATIONS DURING HOSPITALIZATION 1. Dr. Chow from Pulmonary Services. 2. Dr. Orosco from [facility]. Unit #: [id number] #: [id number] Patient: HUE RIVAS LAB WORKUP ON DISCHARGE Sodium 142, potassium 3.5, chloride 101, BUN 18, creatinine 0.6, magnesium 1.6. WBC 8.3, hemoglobin 8.8, hematocrit 28.3, platelet count 371. Potassium 3.5. Urine culture is yeast present, otherwise, no growth. Lactic acid 1.5 on admission. BNP 16 on admission. SIGNIFICANT IMAGING STUDIES DONE DURING HOSPITALIZATION 1. CT scan of the chest showed emphysema with some mild chronic bronchiectasis, new mild alveolar infiltrate in the right middle and right lower lobe. The remainder of the exam is normal. 2. CT scan of the abdomen and pelvis which shows development of some patchy airspace infiltrate in the right middle and right lower lobe, chronic consolidation, mucous plugging and bronchiectasis in the left lower lobe is unchanged. 3. CT scan of the head without contrast was done on admission which shows no acute abnormality seen in the brain. Mild generalized atrophy is seen. HOSPITAL COURSE Mr. Rivas is a 60-year-old male who is a half-way resident who was admitted with shortness of breath and chest tightness and generalized fatigue and tiredness. The patient was diagnosed with acute respiratory/hypercarbic respiratory failure, probable healthcare-acquired pneumonia, sepsis and COPD exacerbation. The patient was admitted to telemetry unit. Dr. Chow was consulted. The patient was started on broad-spectrum IV antibiotic. The patient is being changed to Augmentin at this time. The patient is doing much better. He is being discharged back to half-way to continue care. The patient did receive IV Solu-Medrol because of COPD exacerbation. That is being changed to prednisone p.o. Potassium and magnesium were replaced during hospitalization. Dr. Arun Orosco was consulted because of small mucousy stool in the rectum. The patient has had two small mucousy stool in the last five months or so. Depending upon the residual amount of rectosigmoid, he could continue to have some secretion and formation of mucous stool balls in the residual rectosigmoid, which he could occasionally pass. This is not unusual or pathologically and is of no concern as per Dr. Orosco. EXAMINATION ON DISCHARGE VITAL SIGNS: Blood pressure 134/76. Respiratory rate 16. Pulse 72. Temperature 97.4. CHEST: Fair air entry, decreased at the bases. CARDIOVASCULAR: Regular rhythm. ABDOMEN: PEG is in place and colostomy bag is in place. DISCHARGE INSTRUCTIONS 1. The patient is being discharged to rehab facility in stable condition. 2. Medication as per medication reconciliation. 3. PT, OT at half-way. 4. Dr. Kirkland to follow patient at rehab. 5. CBC and BMP in three to four days. 1. Dictated by... Susie Guillen M.D. Unit #: [id number] #: [id number] Patient: HUE RIVAS ALICE/josr TD: 07/03/2016 16:22 JOB #: [id number] DISCHARGE SUMMARY Page 1 of 1 X Susie Guillen MD X DISCHARGE SUMMARY
--- NOTE | ~2016-06-29 | CT57 ---
[facility] A Service of [facility] & [facility] RADIOLOGY TEXT RESULTS PATIENT: HUE COTTON LOCATION: [facility] 340-01 : 53 UNIT #: [id number] AGE: [address]: Susie Guillen MD SEX: M ORDER DR: [id number] [facility] [address] [facility]. [place], [place] [address] [id number] I MR#: [id number] Acc #: [id number] NAME: HUE COTTON : 1955 SEX: M STUDY DATE/TIME: 06/30/2016 15:21 UNIT: A U ROOM: 340 STUDY DESCRIPTION: CT Chest Wo Cont Attending Physician: Susie Guillen M.D. Ordering Physician: Talia Chow M.D. Primary Care Physician: Shadi Kirkland M.D. MEDICAL IMAGING REPORT This report is preliminary unless electronic signature is present EXAM Chest CT 06/30/2016 INDICATIONS Pneumonia, sepsis, hypoxia since yesterday. TECHNIQUE Axial noncontrast images were obtained through the chest. Multiplanar reformats were obtained. This CT exam was performed with one or more of the following radiation dose reduction techniques: automatic exposure control, adjustment of mA and/or kV according to patient size, and iterative reconstruction. COMPARISON 06/03/2016 FINDINGS There is atherosclerotic disease. There is some coronary artery disease, predominately in the LAD. There is no pleural or pericardial effusion. There is no adenopathy. There is emphysema. There is a mild degree of bilateral lower lobe bronchiectasis which is stable. There is new very mild infiltrate in the right middle lobe, which could reflect a mild pneumonia. There is slight interval increase in alveolar opacities in the right lower lobe. Mild chronic changes in both lower lobes are otherwise stable. No pneumothorax. The upper abdomen shows a well-positioned gastrostomy tube. Gallbladder is contracted and poorly evaluated. IMPRESSION 1. Emphysema with some mild chronic bronchiectasis and chronic scarring in the lower lobes. 2. New mild alveolar infiltrate in the right middle and right lower lobes may indicate a mild degree of acute pneumonia. 3. Remainder of the exam is stable from 06/03/2016. [facility] A Service of [facility] & [facility] RADIOLOGY TEXT RESULTS PATIENT: HUE COTTON LOCATION: [facility] 340-01 : 53 UNIT #: [id number] AGE: [address]: Susie Guillen MD SEX: M ORDER DR: Dictated by... Arun Carver Jr., M.D. THIS IS AN ELECTRONICALLY VERIFIED REPORT Arun Carver Jr., M.D. at 07/01/2016 5:55 AM LUIS F/nitin TD: 06/30/2016 16:55 JOB #: [id number] MEDICAL IMAGING REPORT Page 1 of 1 COPY
--- NOTE | ~2016-06-29 | CR72 ---
[facility] A Service of [facility] RADIOLOGY TEXT RESULTS PATIENT: HUE COTTON LOCATION: [facility] : 53 UNIT #: [id number] AGE: [address]: Susie Guillen MD SEX: M ORDER DR: [id number] [facility] [address] [facility]. [place], [place] [address] [id number] MR#: [id number] Acc #: [id number] NAME: HUE COTTON : 1955 SEX: M STUDY DATE/TIME: 06/29/2016 1300 UNIT: [facility] ROOM: STUDY DESCRIPTION: CR Chest Single View Portable Attending Physician: Ronaldo Nicholson D.O. Ordering Physician: Ronaldo Nicholson D.O. Primary Care Physician: Shadi Kirkland M.D. MEDICAL IMAGING REPORT This report is preliminary unless electronic signature is present EXAM Chest, portable, 06/29/2016, 1300 hours. CLINICAL HISTORY 60-year-old [facility] patient with hypotension today. COMPARISON STUDIES Chest CT 06/03/2016 and chest x-ray 06/01/2016. FINDINGS Portable upright chest demonstrates mild cardiomegaly and tortuous aorta without change. There is underlying emphysematous change with hazy right greater than left lower lung density increased from 05/01/2016. Findings are concerning for infection including aspiration pneumonia or asymmetric edema. No definite effusion seen. IMPRESSION Increasing right greater than left basilar densities which could represent asymmetric edema or infection. Consider aspiration. Dictated by... Farheen Carlos M.D. THIS IS AN ELECTRONICALLY VERIFIED REPORT Farheen Carlos M.D. at 06/30/2016 9:31 AM CAYLA/rosamaria TD: 06/29/2016 15:19 JOB #: [id number] [facility] A Service of [facility] RADIOLOGY TEXT RESULTS PATIENT: HUE COTTON LOCATION: [facility] : 53 UNIT #: [id number] AGE: [address]: Susie Guillen MD SEX: M ORDER DR: MEDICAL IMAGING REPORT Page 1 of 1 COPY
[2016-06-29 13:18] LABS: BASOPHIL# 0.2 X10e3 (0-0.3); BASOPHIL% 1.1 % (0-2.5); EOSINOPHIL# 0.4 X10e3 (0-0.7); EOSINOPHIL% 2.8 % (0.0-7.0); HEMATOCRIT 29.7 % (38.0-50.0); LYMPHOCYTE# 5.3 X10e3 (1.0-3.5); LYMPHOCYTE% 36.8 % (17.0-45.0); MEAN CELL VOLUME 81.2 FL (83-96); MEAN CORPUSCULAR HEMOGLOBIN 24.8 PG (28-34); MEAN CORPUSCULAR HGB CONC 30.5 g/dL (30-36); MONOCYTE# 1.8 X10e3 (0-1.0); MONOCYTE% 12.2 % (3.0-12.0); NEUTROPHIL# 6.8 X10e3 (1.5-7.1); NEUTROPHIL% 47.1 % (40-75); PLATELET COUNT 371 X10e3 (140-420); RED BLOOD COUNT 3.65 X10e (3.90-5.60); RED CELL DISTRIBUTION WIDTH 17.7 % (11.0-15.5); WHITE BLOOD COUNT 14.4 X10e3 (4.0-10.5)
[2016-06-29 13:20] LABS: URINE APPEARANCE TURBID; URINE BILIRUBIN NEG (NEG); URINE BLOOD 2+ (NEG); URINE COLOR DK YELLOW; URINE GLUCOSE NEG (NEG); URINE KETONE NEG (NEG); URINE LEUKOCYTE ESTERASE 3+ (NEG); URINE NITRATE NEG (NEG); URINE PROTEIN 2+ (NEG); URINE SPECIFIC GRAVITY 1.014 (1.003-1.035); URINE UROBILINOGEN 0.2 MG/DL (NEG)
[2016-06-29 13:20] LABS: DIFF IND NO
[2016-06-29 13:24] LABS: CULTURE INDICATED? YES; URINE BACTERIA AUWI NEG (NEGATIVE); URINE SQUAMOUS EPITHELIAL CELL OCC /[HPF]; UWBCS1 AUWI INNUM (0-5)
[2016-06-29 13:32] LABS: PROTHROMBIN TIME (PATIENT) 10.4 SECONDS (9.6-11.5)
[2016-06-29 13:34] LABS: INFLUENZA A NEG (NEG); INFLUENZA B NEG (NEG)
[2016-06-29 13:51] LABS: URINE YEAST PRESENT
[2016-06-29 13:53] LABS: ALBUMIN SERUM 2.8 g/dL (3.5-5.0); BILIRUBIN, DIRECT 0.1 mg/dL (0.0-0.2); BILIRUBIN,INDIRECT 0.4 mg/dL (0.0-0.9); BILIRUBIN,TOTAL 0.5 mg/dL (0.2-2.0); BUN/CREATININE RATIO 18.57; CALCIUM SERUM 9.4 mg/dL (8.4-10.2); CREATININE SERUM 1.4 mg/dL (0.6-1.4); GLOM FILT RATE Estimated 53.5 mL/min (>60); POTASSIUM 4.5 mmol/L (3.5-5.1); PROTEIN TOTAL SERUM 7.2 g/dL (6.0-8.3)
[2016-06-29 14:58] LABS: ARTERIAL BLD GAS O2 SATURATION 98.4 % (90.0-100.0); ARTERIAL BLOOD GAS CARBOXY HB 0.2 %sat (0.0-9.0); ARTERIAL BLOOD GAS HCO3 27.7 mmol/L; ARTERIAL BLOOD GAS pH 7.243 (7.350-7.450)
[2016-06-29 14:59] LABS: ARTERIAL BLOOD GAS ALLEN TEST NORMAL; ARTERIAL BLOOD GAS ART SITE RIGHT RADIAL; ARTERIAL BLOOD GAS DELIVERY NON REBREATHER; ARTERIAL BLOOD GAS PCO2 64.4 mmHg (35.0-45.0); ARTERIAL DRAW? YES
[2016-06-29] MEDS ORDERED: NEURONTIN100 MG PEG (17:45)
[2016-06-29] MEDS ORDERED: BENTYL10 M1 PEG (17:46)
[2016-06-29] MEDS ORDERED: ACIDOPHILUS1 EAC3 PEG (17:46)
[2016-06-29] MEDS ORDERED: VITAMIN D31000 UNIT PEG (17:47)
[2016-06-29] MEDS ORDERED: POTASSIUM CHLO20 ME1 PEG (17:47)
[2016-06-29] MEDS ORDERED: IPRAT-ALBUT 0.5-3 ML INH (17:48)
[2016-06-29] MEDS ORDERED: FERREX 150 FOR1 EACH PEG (17:49)
[2016-06-29] MEDS ORDERED: FOLIC ACID1 MG PEG (17:49)
[2016-06-29] MEDS ORDERED: GERI-TUSSI100 MG/5 M PEG (17:50)
[2016-06-29] MEDS ORDERED: MAG-OX 400400 M1 PEG (17:50)
[2016-06-29] MEDS ORDERED: DITROPAN5 MG PEG (17:51)
[2016-06-29] MEDS ORDERED: DILTIAZEM 24HR120 MG PEG (17:52)
[2016-06-29] MEDS ORDERED: GUAIFENESIN1200 M1 PEG (17:53)
[2016-06-29] MEDS ORDERED: PERFOROMIS20 MCG/2 M INH (17:54)
[2016-06-29] MEDS ORDERED: PROBIOTIC250 MG PEG (17:54)
[2016-06-29] MEDS ORDERED: MULTIVITAMINS1 EAC3 PEG (18:14)
[2016-06-29] MEDS ORDERED: VITAMIN B-1100 M1 PEG (18:15)
[2016-06-29] MEDS ORDERED: PANTOPRAZOLE SO40 MG PEG (18:15)
[2016-06-29] MEDS ORDERED: RAPAFLO4 MG PEG (18:16)
[2016-06-29] MEDS ORDERED: SEROQUEL25 MG PEG ×2 (18:19→18:20)
[2016-06-29] MEDS ORDERED: MONTELUKAST SOD10 MG PEG (18:23)
[2016-06-29] MEDS ORDERED: MAPAP500 MG PEG (18:23)
[2016-06-29] MEDS ORDERED: ALPRAZOLAM PEG (18:24)
[2016-06-29] MEDS ORDERED: HYDROCODON-ACE1 EA11 PEG (18:24)
[2016-06-29 18:52] LABS: ARTERIAL BLD GAS O2 SATURATION 91.3 % (90.0-100.0); ARTERIAL BLOOD GAS CARBOXY HB 0.5 %sat (0.0-9.0); ARTERIAL BLOOD GAS HCO3 27.2 mmol/L; ARTERIAL BLOOD GAS MET HB 0.8 %sat (0.0-2.0); ARTERIAL BLOOD GAS pH 7.253 (7.350-7.450)
[2016-06-29 18:54] LABS: ARTERIAL BLOOD GAS ALLEN TEST NORMAL; ARTERIAL BLOOD GAS ART SITE LEFT RADIAL; ARTERIAL BLOOD GAS DELIVERY NASAL CANNULA; ARTERIAL BLOOD GAS PCO2 61.6 mmHg (35.0-45.0); ARTERIAL BLOOD GAS PO2 71.2 mmHg (80.0-100); ARTERIAL DRAW? YES
[2016-06-30 09:27] LABS: HEMATOCRIT 28.3 % (38.0-50.0); HEMOGLOBIN 8.8 gm/dL (13.0-16.0); MEAN CELL VOLUME 80.3 FL (83-96); MEAN CORPUSCULAR HEMOGLOBIN 25.1 PG (28-34); MEAN CORPUSCULAR HGB CONC 31.2 g/dL (30-36); MEAN PLATELET VOLUME 7.6 FL (6.5-11.5); RED BLOOD COUNT 3.53 X10e (3.90-5.60); RED CELL DISTRIBUTION WIDTH 17.3 % (11.0-15.5); WHITE BLOOD COUNT 11.6 X10e3 (4.0-10.5)
[2016-06-30 09:52] LABS: ALBUMIN SERUM 2.8 g/dL (3.5-5.0); BILIRUBIN,TOTAL 0.4 mg/dL (0.2-2.0); BUN/CREATININE RATIO 21.25; CALCIUM SERUM 9.2 mg/dL (8.4-10.2); CREATININE SERUM 0.8 mg/dL (0.6-1.4); GLOM FILT RATE Estimated 95.8 mL/min (>60); MAGNESIUM 1.2 mg/dL (1.6-3.0); POTASSIUM 4.3 mmol/L (3.5-5.1)
[2016-06-30 13:03] LABS: ARTERIAL BLD GAS O2 SATURATION 94.8 % (90.0-100.0); ARTERIAL BLOOD GAS CARBOXY HB 0.5 %sat (0.0-9.0); ARTERIAL BLOOD GAS HCO3 28.5 mmol/L; ARTERIAL BLOOD GAS MET HB 0.9 %sat (0.0-2.0); ARTERIAL BLOOD GAS pH 7.349 (7.350-7.450)
[2016-06-30 13:05] LABS: ARTERIAL BLOOD GAS PCO2 51.8 mmHg (35.0-45.0); ARTERIAL BLOOD GAS PO2 79.7 mmHg (80.0-100)
[2016-06-30 13:06] LABS: ARTERIAL BLOOD GAS ART SITE RIGHT RADIAL; ARTERIAL BLOOD GAS DELIVERY NASAL CANNULA; ARTERIAL DRAW? YES
[2016-07-01 05:51] LABS: HEMATOCRIT 27.3 % (38.0-50.0); HEMOGLOBIN 8.6 gm/dL (13.0-16.0); MEAN CELL VOLUME 79.9 FL (83-96); MEAN CORPUSCULAR HGB CONC 31.3 g/dL (30-36); MEAN PLATELET VOLUME 8.2 FL (6.5-11.5); RED BLOOD COUNT 3.42 X10e (3.90-5.60); RED CELL DISTRIBUTION WIDTH 16.8 % (11.0-15.5); WHITE BLOOD COUNT 13.6 X10e3 (4.0-10.5)
[2016-07-01 06:38] LABS: ALBUMIN SERUM 2.7 g/dL (3.5-5.0); BILIRUBIN,TOTAL 0.4 mg/dL (0.2-2.0); BUN/CREATININE RATIO 21.66; CALCIUM SERUM 9.3 mg/dL (8.4-10.2); CREATININE SERUM 0.6 mg/dL (0.6-1.4); GLOM FILT RATE Estimated 107.8 mL/min (>60); POTASSIUM 3.5 mmol/L (3.5-5.1); PROTEIN TOTAL SERUM 6.9 g/dL (6.0-8.3)
[2016-07-02 06:09] LABS: HEMATOCRIT 27.7 % (38.0-50.0); HEMOGLOBIN 8.6 gm/dL (13.0-16.0); MEAN CELL VOLUME 80.5 FL (83-96); MEAN CORPUSCULAR HEMOGLOBIN 25.1 PG (28-34); MEAN CORPUSCULAR HGB CONC 31.1 g/dL (30-36); MEAN PLATELET VOLUME 8.3 FL (6.5-11.5); RED BLOOD COUNT 3.44 X10e (3.90-5.60); RED CELL DISTRIBUTION WIDTH 17.4 % (11.0-15.5); WHITE BLOOD COUNT 11.1 X10e3 (4.0-10.5)
[2016-07-02 06:53] LABS: CALCIUM SERUM 8.8 mg/dL (8.4-10.2); CREATININE SERUM 0.6 mg/dL (0.6-1.4); GLOM FILT RATE Estimated 107.8 mL/min (>60); MAGNESIUM 1.5 mg/dL (1.6-3.0); POTASSIUM 3.4 mmol/L (3.5-5.1)
[2016-07-03 08:07] LABS: HEMATOCRIT 28.3 % (38.0-50.0); HEMOGLOBIN 8.8 gm/dL (13.0-16.0); MEAN CELL VOLUME 80.5 FL (83-96); MEAN CORPUSCULAR HEMOGLOBIN 25.1 PG (28-34); MEAN CORPUSCULAR HGB CONC 31.2 g/dL (30-36); MEAN PLATELET VOLUME 8.1 FL (6.5-11.5); RED BLOOD COUNT 3.52 X10e (3.90-5.60); RED CELL DISTRIBUTION WIDTH 17.4 % (11.0-15.5); WHITE BLOOD COUNT 8.3 X10e3 (4.0-10.5)
[2016-07-03 08:41] LABS: CALCIUM SERUM 8.8 mg/dL (8.4-10.2); CREATININE SERUM 0.6 mg/dL (0.6-1.4); GLOM FILT RATE Estimated 107.8 mL/min (>60); MAGNESIUM 1.6 mg/dL (1.6-3.0); POTASSIUM 3.5 mmol/L (3.5-5.1)
== END 2016-07-03 19:12 | DRG 871 ==
LOC: CED 12:41 → CEDOF 15:50 → C3A PCU 06-30 11:39
PROVIDERS: Emergency Medicine; Hospitalist; Internal Medicine; Physician Assistant Medical
PROC: 05HM33Z Insertion of Infusion Device into Right Internal Jugular Vein, Percutaneous Approach (ICD-10-PCS; principal; 2016-06-29)
PROC: B543ZZA Ultrasonography of Right Jugular Veins, Guidance (ICD-10-PCS; 2016-06-29)
PROC: B246ZZZ Ultrasonography of Right and Left Heart (ICD-10-PCS; 2016-07-01)
DX: A41.9 Sepsis, unspecified organism (principal); J18.9 Pneumonia, unspecified organism; J96.01 Acute respiratory failure with hypoxia; J96.02 Acute respiratory failure with hypercapnia; J44.0 Chronic obstructive pulmonary disease with (acute) lower respiratory infection; I50.30 Unspecified diastolic (congestive) heart failure; Z99.81 Dependence on supplemental oxygen; D64.9 Anemia, unspecified; E11.9 Type 2 diabetes mellitus without complications; J44.1 Chronic obstructive pulmonary disease with (acute) exacerbation; E87.1 Hypo-osmolality and hyponatremia; Y95 Nosocomial condition; I25.10 Atherosclerotic heart disease of native coronary artery without angina pectoris; E87.6 Hypokalemia; E83.42 Hypomagnesemia; F17.200 Nicotine dependence, unspecified, uncomplicated; Z85.038 Personal history of other malignant neoplasm of large intestine; Z93.3 Colostomy status; Z79.899 Other long term (current) drug therapy; Z90.49 Acquired absence of other specified parts of digestive tract
CPT/HCPCS: 36415; 36600; 70450; 71010; 71020; 71250; 74176; 80048; 80053; 80076; 80200; 80202; 81003; 82803; 82947; 83605; 83735; 83880; 84132; 85025; 85027; 85610; 85730; 87040; 87086; 87449; 87804; 87899; 93005; 93306; 94640; 94760; 96361; 96365; 96366; 96367; 96375; 99291; C9113; J1650; J2543; J2920; J2930; J3260; J3370; J3475

== ENCOUNTER 2016-09-28 02:19 | Inpatient (IN) | payer OTHER ==
[~2016-09-28] VITALS: Ht 190.5 cm; Wt 78.8 kg
--- NOTE | ~2016-09-28 | EKG ---
PATIENT: HUE COTTON UNIT #: [id number] Ventricular Rate: 86 BPM Atrial Rate: 86 BPM P-R Interval: 124 ms QRS Duration: 102 ms Q-T Interval: 366 ms QTC Calculation(Bezet): 437 ms P [place]: 48 degrees Calculated R [place]: 52 degrees Calculated T [place]: 65 degrees Diagnosis Line: Sinus rhythm with occasional Premature ventricular Diagnosis Line: complexes Diagnosis Line: Otherwise normal ECG Diagnosis Line: No previous ECGs available Diagnosis Line: Confirmed by DAVID MOCK MD ([id number]) on Diagnosis Line: 09/29/2016 8:28:15 AM INTERPRETING MD: EMILI HEREDIA
--- NOTE | ~2016-09-28 | CR72 ---
[facility] A Service of [facility] RADIOLOGY TEXT RESULTS PATIENT: HUE COTTON LOCATION: [place] [address] : 53 UNIT #: [id number] AGE: [address]: Susie Guillen MD SEX: M ORDER DR: [id number] [facility] [address] [place], [place] [address] [id number] MR#: [id number] Acc #: [id number] NAME: HUE COTTON : 1955 SEX: M STUDY DATE/TIME: 09/28/2016 3:31 UNIT: [facility] ROOM: 10907 STUDY DESCRIPTION: CR Chest Single View Portable Attending Physician: Susie Guillen M.D. Ordering Physician: Ronaldo Nicholson D.O. Primary Care Physician: Shadi Kirkland M.D. MEDICAL IMAGING REPORT This report is preliminary unless electronic signature is present EXAM Portable chest INDICATIONS Shortness of air for the past month. PROCEDURE Frontal view chest. COMPARISON STUDIES 06/30/2016 FINDINGS Heart size is unchanged. There is interstitial prominence in the right lower lung zone. No dense consolidation or pneumothorax. IMPRESSION Interstitial prominence in the right lower lung zone could represent atypical infiltrate. There is no dense consolidation. Dictated by... Abdirahman Garcia M.D. THIS IS AN ELECTRONICALLY VERIFIED REPORT Abdirahman Garcia M.D. at 09/28/2016 9:51 PM EED/louis TD: 09/28/2016 13:46 JOB #: [id number] MEDICAL IMAGING REPORT [facility] A Service of [facility] RADIOLOGY TEXT RESULTS PATIENT: HUE COTTON LOCATION: [facility] 5705-12 : 53 UNIT #: [id number] AGE: [address]: Susie Guillen MD SEX: M ORDER DR: Page 1 of 1 COPY
--- NOTE | ~2016-09-28 | HP ---
Unit #: [id number] #: [id number] Patient: SHELDON RIVAS [id number] [address] [place], [place] [address] [id number] I MR#: [id number] NAME: SHELDON RIVAS ROOM: 573 Age: 61 Sex: M Admission Date: 09/28/2016 : 1955 Attending Physician: Susie Guillen M.D. Primary Care Physician: Shadi Kirkland M.D. HISTORY AND PHYSICAL CHIEF COMPLAINT Shortness of breath. HISTORY OF PRESENTING ILLNESS Mr. Sheldon Rivas is a 61-year-old male who is very well known to me from multiple admissions. Last admission was in June 2016 when he was treated for COPD exacerbation and pneumonia. Patient was discharged to rehab facility. He has been in [facility] since then. According to patient, he has not been to any other hospital. For the last three days he has been feeling bad. He had a temperature of 102 two days ago, received aspirin and got better. He also had some chills yesterday, whole day. He did not get fever but he was not feeling well. He started to have shortness of breath and chest tightness and also sputum production. Sputum is about light yellow to dirty white. No complaint of hemoptysis at this time. Patient continued to smoke, smokes about four to five cigarettes a day at least. Patient is not able to ambulate even one block without getting short of breath. He does not complain of orthopnea or paroxysmal nocturnal dyspnea although he does have history of diastolic congestive heart failure. PAST MEDICAL HISTORY 1. History of chronic hypoxic respiratory failure on home O2. 2. COPD. 3. Coronary artery disease. 4. History of diastolic congestive heart failure. 5. Diabetes mellitus type 2. 6. History of colon resection, status post colostomy. 7. History of PEG placement. 8. Ongoing tobacco abuse. PAST SURGICAL HISTORY 1. History of toxic megacolon status post colon resection. 2. History of PEG placement. 3. Hemorrhoidectomy. 4. TURP. 5. History of nose surgery. 6. Hernia surgery. SOCIAL HISTORY Patient is a resident of a skilled nursing. He has a history of smoking and continues to smoke. No history of alcohol abuse or drug abuse. ALLERGIES Unit #: [id number] #: [id number] Patient: SHELDON RIVAS No known drug allergies. FAMILY HISTORY The patient's sister had colon cancer. REVIEW OF SYSTEMS As per history of presenting illness. HOME MEDICATIONS Home medications are: 1. Protonix 40 mg daily. 2. Bentyl 10 mg q.i.d. 3. Neurontin 100 mg q.i.d. 4. Rapaflo 4 mg daily. 5. Folic acid 1 mg daily. 6. Florastor 250 mg daily. 7. Potassium 22.5 mL daily. 8. Vitamin D3 2000 units daily. 9. Tad-A-Gage one tablet daily. 10. Cardizem 60 mg daily. 11. Ipratropium inhaler q.4 h. p.r.n. 12. Mag oxide 400 mg t.i.d. 13. Ditropan 5 mg t.i.d. 14. Ferrex 150 b.i.d. 15. Perforomist one puff inhaler b.i.d. 16. Singulair 10 mg daily. 17. Acetaminophen 500 mg q.4 h. p.r.n. 18. DuoNeb q.4 h. 19. Xanax 0.25 mg p.o. b.i.d. 20. Lortab 10/325 q.6 h. p.r.n. 21. q.8 h. p.r.n. PHYSICAL EXAMINATION GENERAL APPEARANCE: Patient has been evaluated in ER bed 4. VITAL SIGNS: Blood pressure is 140/100. Respiratory rate 26. Pulse is 78. Temperature 98.1. Oxygen saturation is 95% on 4 L. HEENT: Head is normocephalic. Eye movements are normal. NECK: Neck is supple. CHEST: Has decreased air entry bilateral. Crackles are heard in the bases. CVS: S1, S2 positive, regular rhythm. ABDOMEN: Distended. Colostomy is present. PEG tube is in place. Bowel sounds are positive. EXTREMITIES: Negative edema. Pulses are palpable. [employer]ER: Patient is awake, alert, oriented x3. No focal neurological deficit. DIAGNOSTIC STUDIES LABORATORY: Workup is WBC 11.4, hemoglobin 10.1, hematocrit 32.9, platelet count of 433, PT and INR is 10.7 and 1.0, troponin is less than 0.05, lactic acid is 0.9, sodium 136, potassium 4.0, chloride 97, BUN 9, creatinine 0.8, liver enzymes are stable, BNP is 36. Procalcitonin level 0.10. IMAGING: Chest x-ray was done in ER. That shows interstitial prominence in the right lower lung zone. Could represent atypical infiltrate. No dense consolidation. Unit #: [id number] #: [id number] Patient: SHELDON RIVAS Patient is being admitted to a telemetry unit with: 1. Acute exacerbation of respiratory failure. 2. Healthcare-acquired pneumonia. 3. Chronic obstructive pulmonary disease exacerbation. 4. Abdominal pain. 5. Coronary artery disease. 6. Diabetes mellitus. 7. History of colon resection for megacolon. 8. History of percutaneous endoscopic gastrostomy placement. 9. Ongoing tobacco abuse. PLAN Plan is admit to telemetry unit. Dr. Tubbs has been consulted. Broad spectrum IV antibiotic is being started. Lovenox 40 mg subcu daily is being started. Sputum culture will be done. Blood culture will be done. Tobacco cessation counseling done but according to patient he is going to continue to smoke. Oxygen to keep saturation above 95%. Please refer to progress note for further orders. Dictated by Tiara Barragan/carolyn TD: 09/28/2016 18:29 JOB #: [id number] HISTORY AND PHYSICAL Page 1 of 1 X Susie Guillen MD X HISTORY AND PHYSICAL
--- NOTE | ~2016-09-28 | CO ---
Unit #: [id number] #: [id number] Patient: HUE COTTON [id number] [address] [place], [place] [address] [id number] I MR#: [id number] NAME: HUE COTTON ROOM: 573 Age: 61 Sex: M Admission Date: 09/28/2016 : 1955 Attending Physician: Susie Guillen M.D. Primary Care Physician: Shadi Kirkland M.D. Consultation Date: 09/28/2016 CONSULTATION REPORT REASON FOR CONSULT Pneumonia. CHIEF COMPLAINT Shortness of breath. HISTORY OF PRESENT ILLNESS This is a very pleasant 61-year-old male with a past medical history significant for chronic hypoxic respiratory failure on four liters nasal cannula, COPD, diabetes mellitus, and coronary artery disease, who presented to the emergency [facility]. Patient stated that two to three days ago he started having progressive productive cough with yellowish sputum associated with fever and shortness of breath. Patient was given aspirin at the [facility] which helped partially, but he continued to have chest pain mainly on inspiration. His symptoms progressed rapidly over the last 24 hours to the point he was unable to take a deep breath today, so he was transferred over here. Patient is currently on six liters nasal cannula, and his baseline is four liters. He is achy all over and he had some nausea, but he denied any vomiting or diarrhea. PAST MEDICAL HISTORY 1. Chronic hypoxic respiratory failure. 2. Chronic obstructive pulmonary disease. 3. Diabetes mellitus type 2. 4. Coronary artery disease. 5. Diastolic congestive heart failure. 6. Chronic anemia. 7. Benign prostatic hypertrophy. PAST SURGICAL HISTORY 1. Percutaneous endoscopic gastrostomy placement. 2. Colon resection. 3. Colostomy bag placement. 4. Transurethral resection of the prostate. 5. Hernia repair. SOCIAL HISTORY [facility] is a [facility] resident. He has a history of smoking and is still actively smoking, but he is down to 10 cigarettes every few days. No history of alcohol or drug abuse. FAMILY HISTORY Colon cancer. Unit #: [id number] #: [id number] Patient: HUE COTTON ALLERGIES No known drug allergies. HOME MEDICATIONS 1. Neurontin. 2. Bentyl. 3. Vitamin D. 4. Ipratropium. 5. Iron. 6. Pantoprazole. 7. Rapaflo. 8. Ditropan. 9. Cardizem. 10. Guaifenesin. 11. Seroquel. 12. Singulair. 13. Xanax. 14. Hydrocodone. REVIEW OF SYSTEMS A 12-point review of systems was obtained and was negative except for what was mentioned in the History of Present Illness. PHYSICAL EXAMINATION GENERAL: Patient appears in respiratory distress and not feeling well. VITAL SIGNS: Blood pressure 136/58 and O2 saturation 96% on 6 L. HEENT: Atraumatic, normocephalic. PERRLA. EOMI. NECK: Supple. No JVD. No lymphadenopathy. CHEST: Bilateral diffuse rhonchi and wheezing. HEART: S1 and S2. No murmur, gallops, or rubs. ABDOMEN: Soft, nontender. Positive colostomy bag. EXTREMITIES: No edema or cyanosis. SKIN: No rashes. CENTRAL NERVOUS SYSTEM: Awake, alert, oriented x3. No focal motor/sensory deficits. DIAGNOSTIC STUDIES LABORATORY: Creatinine 0.8, chloride 97, and CO2 of 32. White blood count 11.4, hemoglobin 10.1, and platelets 433,000. IMAGING: Chest x-ray is consistent with right-sided pneumonia. ASSESSMENT 1. Acute on chronic hypoxic respiratory failure. 2. Healthcare-associated pneumonia, likely gram-negative/MRSA. 3. Acute exacerbation of chronic obstructive pulmonary disease. 4. Chronic anemia. 5. Diabetes. 6. Diastolic congestive heart failure. 7. Benign prostatic hypertrophy. PLAN 1. Will continue patient on broad spectrum antibiotics pending culture. 2. Will schedule for bronchoscopy given recurrent pneumonia and [facility] status. 3. Bronchodilator and mucolytics. 4. IV steroids with caution given his history of diabetes. Unit #: [id number] #: [id number] Patient: HUE COTTON 5. DVT prophylaxis. 6. Encourage out of bed and early ambulation. Dictated by... Tiara Contreras TD: 09/28/2016 22:09 JOB #: [id number] CONSULTATION REPORT Page 1 of 1 X AARON HAMPTON MD CONSULTATION REPORT
--- NOTE | ~2016-09-28 | CR7 ---
[facility] A Service of [facility] & [facility] RADIOLOGY TEXT RESULTS PATIENT: HUE COTTON LOCATION: [facility] 573-01 : 53 UNIT #: [id number] AGE: [address]: Susie Guillen MD SEX: M ORDER DR: [id number] [facility] [address] [facility] [address] [place], [place] [address] [id number] I MR#: [id number] Acc #: [id number] NAME: HUE COTTON : 1955 SEX: M STUDY DATE/TIME: 09/28/2016 15:59 UNIT: [facility] ROOM: [facility] STUDY DESCRIPTION: CR Abdomen Single AP View Attending Physician: Susie Guillen M.D. Ordering Physician: Ronaldo Nicholson D.O. Primary Care Physician: Shadi Kirkland M.D. MEDICAL IMAGING REPORT This report is preliminary unless electronic signature is present EXAM Abdomen 09/28/2016 HISTORY Right sided abdomen pain and distention and bloating for 6 months. COMPARISON 04/17/2016. FINDINGS A supine view of the abdomen was obtained. The bowel gas pattern is normal. A G-Tube is present. Bones are unremarkable. There is an ostomy site in the right lower quadrant. IMPRESSION Normal bowel gas pattern. Dictated by... Jori Branham M.D. THIS IS AN ELECTRONICALLY VERIFIED REPORT Jori Branham M.D. at 09/29/2016 7:08 AM LIBAN/jerica TD: 09/29/2016 03:33 JOB #: [id number] MEDICAL IMAGING REPORT Page 1 of 1 COPY
--- NOTE | ~2016-09-28 | DS ---
Unit #: [id number] #: [id number] Patient: HUE COTTON [id number] [address] [address] [id number] I MR#: [id number] NAME: HUE COTTON ROOM: 573 Age: 61 Sex: M Admission Date: 09/28/2016 : 1955 Discharge Date: 10/03/2016 Attending Physician: Susie Guillen M.D. Primary Care Physician: Shadi Kirkland M.D. DISCHARGE SUMMARY CHIEF COMPLAINT 1. Status post acute hypoxemic respiratory failure. 2. Status post acute exacerbation of chronic obstructive pulmonary disease. 3. Healthcare-acquired pneumonia, status post completion of IV antibiotics. 4. Anemia of chronic disease, stable. 5. History of coronary artery disease. 6. Diabetes. 7. History of diastolic heart failure. DISCHARGE MEDICATIONS 1. [place] 10/325 at 1 tablet q.6 p.r.n. for pain. 2. Continue with home DuoNeb inhaler q.4 hours p.r.n. for shortness of air. 3. Perforomist 1 puff inhaler b.i.d. 4. Prednisone 20 mg daily. 5. Rapaflo 4 mg p.o. daily. 6. Tylenol p.r.n. 7. Magnesium oxide 400 mg p.o. t.i.d. 8. Neurontin 100 mg p.o. q.i.d. 9. Phenergan Dm 500 mL p.o. q.6 hours p.r.n. for cough. 10. Bentyl 10 mg p.o. q.i.d. 11. Seroquel 12.5 mg at bedtime. 12. Xanax 0.25 mg p.o. b.i.d. p.r.n. for anxiety. 13. Cardizem 60 mg p.o. daily. 14. Guaifenesin 2 teaspoons t.i.d. 15. Ditropan 5 mg t.i.d. 16. Ferrex 150 at 1 tablet p.o. b.i.d. 17. Singulair 10 mg daily. 18. Florastor 250 mg daily. 19. Multivitamin daily. 20. Protonix 40 p.o. daily. 21. Tums p.r.n. 22. Potassium chloride daily. 23. Folic acid 1 mg daily. 24. Vitamin D3 at 2000 units p.o. daily. DISPOSITION Going back to long-term care retirement. CONSULTS Dr. Khadijah Tubbs, Pulmonary. Unit #: [id number] #: [id number] Patient: HUE COTTON LABS, DIAGNOSTICS, AND PROCEDURES 1. Chest x-ray on admission showed atypical infiltrate in the right lower lung zone. 2. KUB normal bowel gas pattern. 3. Blood culture negative. Bronchial washing unremarkable. HISTORY OF PRESENT HOSPITAL STAY Please refer to History and Physical done by my colleague for initial presentation on this gentleman. ACTIVE PROBLEMS DIAGNOSED Acute hypoxemic respiratory failure secondary to acute exacerbation of COPD. Patient was treated with bronchodilators and IV steroids. Patient also was diagnosed with healthcare-acquired pneumonia and was treated with IV antibiotics. He was followed by Dr. Chow. He is status post completion of IV antibiotics and was transitioned to p.o. prednisone. Currently stable to be discharged with no signs of acute respiratory distress. See discharge medication reconciliation as above. Stable for discharge with outpatient followup. Anemia of chronic disease, stable. History of coronary artery disease. Continue home medications. History of diastolic heart failure. Continue home medications. Discharge medications and disposition as above. Dictated by... Tiara Suggs/becky TD: 10/03/2016 16:06 JOB #: [id number] DISCHARGE SUMMARY Page 1 of 1 X Paul Bolton MD X DISCHARGE SUMMARY
--- NOTE | ~2016-09-28 | OR ---
Unit #: [id number] #: [id number] Patient: HUE COTTON [id number] [address] [place], [place] [address] [id number] I MR#: [id number] NAME: HUE COTTON ROOM: 573 Date of Procedure: 09/29/2016 Admission Date: 09/28/2016 Surgeon: Aaron Tubbs M.D. : 1955 Attending Physician: Susie Guillen M.D. Primary Care Physician: Shadi Kirkland M.D. PROCEDURE OPERATIVE NOTE PROCEDURE Diagnostic and therapeutic bronchoscopy with bronchoalveolar lavage. INDICATION FOR PROCEDURE Recurrent pneumonia, jail resident and history of COPD. PRE-OP DIAGNOSIS Pneumonia. FINDINGS 1. Mild tracheomalacia. 2. Extensive amount of white thick mucus plugs at the level of the mid trachea into the left main bronchus, right lower lobe, right middle lobe and left lower lobe. MEDICATIONS 1. Fentanyl 100 mcg IV x1. 2. Versed 4 mg IV x1. 3. Benadryl 25 mg IV x1. COMPLICATIONS No immediate complications. DESCRIPTION OF THE PROCEDURE Informed consent was obtained from the patient after explaining the benefits and risks of this procedure. The patient was prepped and positioned in a proper way. Then, he was premedicated with fentanyl and Versed, and then the bronchoscope was advanced through the oral cavity. At the level of his vocal cords, 2% lidocaine was instilled, and then the bronchoscope was passed through the vocal cords into the trachea, which appeared normal, but the patient had mild tracheomalacia. At the mid trachea, the patient was noted to have extensive mucus plugging, which was lavaged and aspirated. Then, at the level of the justin 1% lidocaine x10 mL was instilled. Then the bronchoscope was advanced into the right main bronchus, and the right upper lobe, right middle lobe and right lower lobe were examined, which also appeared normal except for mild tracheomalacia and extensive amount of thick whitish mucus plugs, which were lavaged and aspirated. The bronchoscope was wedged at the level of the right lower lobe, and bronchoalveolar lavage was obtained for microbiology and cytology. Then the bronchoscope was retracted and then readvanced into the left main bronchus, and the left upper lobe, lingula and left lower lobe were examined. The patient was also noted to have extensive amount of mucus plugging mainly in the left main bronchus and the left lower lobe, Unit #: [id number] #: [id number] Patient: HUE COTTON which were lavaged and aspirated. The bronchoscope was retracted out then. The patient tolerated his procedure well with no immediate complications. Dictated by... Tiara Contreras TD: 09/29/2016 09:13 JOB #: [id number] PROCEDURE OPERATIVE NOTE Page 1 of 1 X AARON HAMPTON MD X PROCEDURE OPERATIVE NOTE
[~2016-09-28 02:19] MED LIST changes: +ACIDOPHILUS1 EAC3 PEG; +ALPRAZOLAM PEG; +BENTYL10 M1 PEG; +DILTIAZEM 24HR120 MG PEG; +DITROPAN5 MG PEG; +FERREX 150 FOR1 EACH PEG; +FOLIC ACID1 MG PEG; +GERI-TUSSI100 MG/5 M PEG; +GUAIFENESIN1200 M1 PEG; +HYDROCODON-ACE1 EA11 PEG; +IPRAT-ALBUT 0.5-3 ML INH; +MAG-OX 400400 M1 PEG; +MAPAP500 MG PEG; +MONTELUKAST SOD10 MG PEG; +MULTIVITAMINS1 EAC3 PEG; +NEURONTIN100 MG PEG; +PANTOPRAZOLE SO40 MG PEG; +POTASSIUM CHLO20 ME1 PEG; +PROBIOTIC250 MG PEG; +RAPAFLO4 MG PEG; +SEROQUEL25 MG PEG; +VITAMIN B-1100 M1 PEG; +VITAMIN D31000 UNIT PEG
[2016-09-28 04:09] LABS: BASOPHIL# 0.1 X10e3 (0-0.3); BASOPHIL% 0.9 % (0-2.5); DIFF IND NO; EOSINOPHIL# 0.5 X10e3 (0-0.7); EOSINOPHIL% 4.3 % (0.0-7.0); HEMATOCRIT 32.9 % (38.0-50.0); HEMOGLOBIN 10.1 gm/dL (13.0-16.0); LYMPHOCYTE# 3.9 X10e3 (1.0-3.5); LYMPHOCYTE% 34.1 % (17.0-45.0); MEAN CELL VOLUME 77.8 FL (83-96); MEAN CORPUSCULAR HEMOGLOBIN 23.8 PG (28-34); MEAN CORPUSCULAR HGB CONC 30.6 g/dL (30-36); MEAN PLATELET VOLUME 7.9 FL (6.5-11.5); MONOCYTE# 1.7 X10e3 (0-1.0); MONOCYTE% 14.9 % (3.0-12.0); NEUTROPHIL# 5.2 X10e3 (1.5-7.1); NEUTROPHIL% 45.8 % (40-75); PLATELET COUNT 433 X10e3 (140-420); RED BLOOD COUNT 4.23 X10e (3.90-5.60); RED CELL DISTRIBUTION WIDTH 18.3 % (11.0-15.5); WHITE BLOOD COUNT 11.4 X10e3 (4.0-10.5)
[2016-09-28 04:21] LABS: PARTIAL THROMBOPLASTIN TIME 25.5 SECONDS (23.5-31.3); PROTHROMBIN TIME (PATIENT) 10.7 SECONDS (10.0-11.7)
[2016-09-28 04:23] LABS: POC - CKMB 4.1 ng/mL (0.0-7.9); POC - TROPONIN <0.05 ng/mL (<=0.05)
[2016-09-28 04:27] LABS: ALBUMIN SERUM 3.2 g/dL (3.5-5.0); BILIRUBIN, DIRECT 0.1 mg/dL (0.0-0.2); BILIRUBIN,INDIRECT 0.4 mg/dL (0.0-0.9); BILIRUBIN,TOTAL 0.5 mg/dL (0.2-2.0); BUN/CREATININE RATIO 11.25; CALCIUM SERUM 9.3 mg/dL (8.4-10.2); CREATININE SERUM 0.8 mg/dL (0.6-1.4); GLOM FILT RATE Estimated 95.1 mL/min (>60); PROTEIN TOTAL SERUM 7.5 g/dL (6.0-8.3)
[2016-09-28] MEDS ORDERED: PROTONIX PO (05:12)
[2016-09-28] MEDS ORDERED: BENTYL10 M1 PO (05:13)
[2016-09-28] MEDS ORDERED: NEURONTIN100 MG PO (05:14)
[2016-09-28] MEDS ORDERED: FOLIC ACID1 MG PO (05:15)
[2016-09-28] MEDS ORDERED: RAPAFLO4 MG PO (05:15)
[2016-09-28] MEDS ORDERED: FLORASTOR PO (05:16)
[2016-09-28] MEDS ORDERED: POTASSIUM20 MEQ/11 PO (05:17)
[2016-09-28] MEDS ORDERED: VITAMIN D32000 UNI1 PO (05:18)
[2016-09-28] MEDS ORDERED: TAB-A-VITE PO (05:18)
[2016-09-28] MEDS ORDERED: MAG-OX 400400 M1 PO (05:19)
[2016-09-28] MEDS ORDERED: CARDIZEM60 M1 PO (05:19)
[2016-09-28] MEDS ORDERED: IPRATR-ALBUTEROL3 ML INH (05:19)
[2016-09-28] MEDS ORDERED: DITROPAN5 MG PO (05:20)
[2016-09-28] MEDS ORDERED: FERREX 150 PLU1 EACH PO (05:20)
[2016-09-28] MEDS ORDERED: PERFOROMIS20 MCG/2 M INH (05:21)
[2016-09-28] MEDS ORDERED: MONTELUKAST SOD10 MG PO (05:21)
[2016-09-28] MEDS ORDERED: QUETIAPINE FUMA25 MG PO (05:22)
[2016-09-28] MEDS ORDERED: MAPAP500 M1 PO (05:22)
[2016-09-28] MEDS ORDERED: DUONEB INH (05:23)
[2016-09-28] MEDS ORDERED: ALPRAZOLAM PO (05:23)
[2016-09-28] MEDS ORDERED: GERI-TUSSI100 MG/5 M PO (05:24)
[2016-09-28] MEDS ORDERED: LORTAB 10-3251 EACH PO (05:24)
[2016-09-28 06:20] LABS: POC - CKMB 3.7 ng/mL (0.0-7.9); POC - TROPONIN <0.05 ng/mL (<=0.05)
[2016-09-28 07:23] LABS: ARTERIAL BLD GAS O2 SATURATION 91.4 % (90.0-100.0); ARTERIAL BLOOD GAS CARBOXY HB 1.2 %sat (0.0-9.0); ARTERIAL BLOOD GAS HCO3 31.8 mmol/L; ARTERIAL BLOOD GAS MET HB 0.9 %sat (0.0-2.0); ARTERIAL BLOOD GAS pH 7.391 (7.350-7.450)
[2016-09-28 07:24] LABS: ARTERIAL BLOOD GAS ART SITE RIGHT RADIAL; ARTERIAL BLOOD GAS DELIVERY NASAL CANNULA; ARTERIAL BLOOD GAS PCO2 52.4 mmHg (35.0-45.0); ARTERIAL BLOOD GAS PO2 68.7 mmHg (80.0-100); ARTERIAL DRAW? YES
[2016-09-29 04:29] LABS: HEMOGLOBIN 9.9 gm/dL (13.0-16.0); MEAN CELL VOLUME 77.4 FL (83-96); MEAN PLATELET VOLUME 7.6 FL (6.5-11.5); RED BLOOD COUNT 4.13 X10e (3.90-5.60); RED CELL DISTRIBUTION WIDTH 18.4 % (11.0-15.5); WHITE BLOOD COUNT 7.2 X10e3 (4.0-10.5)
[2016-09-29 04:50] LABS: BUN/CREATININE RATIO 16.25; CALCIUM SERUM 9.1 mg/dL (8.4-10.2); CREATININE SERUM 0.8 mg/dL (0.6-1.4); GLOM FILT RATE Estimated 95.1 mL/min (>60); POTASSIUM 3.8 mmol/L (3.5-5.1)
[2016-09-29 16:16] LABS: BODY FLUID SOURCE BRONCHIAL LAVAGE
[2016-09-29 16:17] LABS: BODY FLUID APPEARANCE CLOUDY
[2016-09-30 05:57] LABS: HEMATOCRIT 32.5 % (38.0-50.0); HEMOGLOBIN 9.9 gm/dL (13.0-16.0); MEAN CELL VOLUME 79.2 FL (83-96); MEAN CORPUSCULAR HEMOGLOBIN 24.2 PG (28-34); MEAN CORPUSCULAR HGB CONC 30.5 g/dL (30-36); MEAN PLATELET VOLUME 8.2 FL (6.5-11.5); RED BLOOD COUNT 4.1 X10e (3.90-5.60); RED CELL DISTRIBUTION WIDTH 18.1 % (11.0-15.5)
[2016-09-30 06:09] LABS: WHITE BLOOD COUNT 10.9 X10e3 (4.0-10.5)
[2016-09-30 06:30] LABS: BUN/CREATININE RATIO 32.85; CREATININE SERUM 0.7 mg/dL (0.6-1.4); GLOM FILT RATE Estimated 100.5 mL/min (>60); POTASSIUM 3.7 mmol/L (3.5-5.1)
[2016-10-01 05:25] LABS: HEMATOCRIT 32.7 % (38.0-50.0); HEMOGLOBIN 9.8 gm/dL (13.0-16.0); MEAN CELL VOLUME 78.5 FL (83-96); MEAN CORPUSCULAR HEMOGLOBIN 23.6 PG (28-34); MEAN CORPUSCULAR HGB CONC 30.1 g/dL (30-36); MEAN PLATELET VOLUME 8.1 FL (6.5-11.5); RED BLOOD COUNT 4.16 X10e (3.90-5.60); WHITE BLOOD COUNT 12.3 X10e3 (4.0-10.5)
[2016-10-01 05:48] LABS: BUN/CREATININE RATIO 32.85; CALCIUM SERUM 8.8 mg/dL (8.4-10.2); CREATININE SERUM 0.7 mg/dL (0.6-1.4); GLOM FILT RATE Estimated 100.5 mL/min (>60); POTASSIUM 3.7 mmol/L (3.5-5.1)
[2016-10-02 05:23] LABS: BASOPHIL% 0.1 % (0-2.5); HEMATOCRIT 32.4 % (38.0-50.0); HEMOGLOBIN 9.8 gm/dL (13.0-16.0); LYMPHOCYTE# 1.3 X10e3 (1.0-3.5); LYMPHOCYTE% 10.4 % (17.0-45.0); MEAN CELL VOLUME 78.4 FL (83-96); MEAN CORPUSCULAR HEMOGLOBIN 23.7 PG (28-34); MEAN CORPUSCULAR HGB CONC 30.3 g/dL (30-36); MONOCYTE% 8.4 % (3.0-12.0); NEUTROPHIL# 9.9 X10e3 (1.5-7.1); NEUTROPHIL% 81.1 % (40-75); PLATELET COUNT 424 X10e3 (140-420); RED BLOOD COUNT 4.14 X10e (3.90-5.60); RED CELL DISTRIBUTION WIDTH 18.4 % (11.0-15.5); WHITE BLOOD COUNT 12.2 X10e3 (4.0-10.5)
[2016-10-02 05:32] LABS: DIFF IND NO
[2016-10-02 07:47] LABS: CALCIUM SERUM 9.1 mg/dL (8.4-10.2); CREATININE SERUM 0.8 mg/dL (0.6-1.4); GLOM FILT RATE Estimated 95.1 mL/min (>60); POTASSIUM 4.1 mmol/L (3.5-5.1)
== END 2016-10-03 16:53 | DRG 166 ==
LOC: CED 02:19 → C5C 06:25 → CEDOF 06:25 → CED 06:53 → CEDOF 06:53 → C5C 16:33
PROVIDERS: Emergency Medicine; Hospitalist; Internal Medicine Pulmonary Disease; Physician Assistant Medical
PROC: 0BCB8ZZ Extirpation of Matter from Left Lower Lobe Bronchus, Via Natural or Artificial Opening Endoscopic (ICD-10-PCS; 2016-09-29)
PROC: 0BC78ZZ Extirpation of Matter from Left Main Bronchus, Via Natural or Artificial Opening Endoscopic (ICD-10-PCS; 2016-09-29)
PROC: 0BC68ZZ Extirpation of Matter from Right Lower Lobe Bronchus, Via Natural or Artificial Opening Endoscopic (ICD-10-PCS; 2016-09-29)
PROC: 0BC58ZZ Extirpation of Matter from Right Middle Lobe Bronchus, Via Natural or Artificial Opening Endoscopic (ICD-10-PCS; 2016-09-29)
PROC: 0B9F8ZX Drainage of Right Lower Lung Lobe, Via Natural or Artificial Opening Endoscopic, Diagnostic (ICD-10-PCS; principal; 2016-09-29 07:30)
PROC: 0BC48ZZ Extirpation of Matter from Right Upper Lobe Bronchus, Via Natural or Artificial Opening Endoscopic (ICD-10-PCS; 2016-09-29 07:30)
PROC: 05H433Z Insertion of Infusion Device into Left Innominate Vein, Percutaneous Approach (ICD-10-PCS; 2016-10-01)
DX: J96.21 Acute and chronic respiratory failure with hypoxia (principal); J18.9 Pneumonia, unspecified organism; T17.590A Other foreign object in bronchus causing asphyxiation, initial encounter; I11.0 Hypertensive heart disease with heart failure; J44.0 Chronic obstructive pulmonary disease with (acute) lower respiratory infection; I50.32 Chronic diastolic (congestive) heart failure; D63.8 Anemia in other chronic diseases classified elsewhere; E11.9 Type 2 diabetes mellitus without complications; J44.1 Chronic obstructive pulmonary disease with (acute) exacerbation; I25.10 Atherosclerotic heart disease of native coronary artery without angina pectoris; F17.210 Nicotine dependence, cigarettes, uncomplicated; Z80.0 Family history of malignant neoplasm of digestive organs; R10.9 Unspecified abdominal pain; Z71.6 Tobacco abuse counseling; N40.0 Benign prostatic hyperplasia without lower urinary tract symptoms; J39.8 Other specified diseases of upper respiratory tract
CPT/HCPCS: 36415; 36600; 71010; 74000; 80048; 80076; 80200; 80202; 82308; 82553; 82803; 83605; 83880; 84484; 85025; 85027; 85610; 85730; 87040; 87070; 87102; 87106; 87116; 87205; 87206; 87252; 87254; 87278; 88108; 88305; 89051; 92610; 93005; 94640; 94760; 96365; 96375; 99285; G8996-GN; G8997-GN; G8998-GN; J0171; J1200; J1650; J1720; J2250; J2543; J2920; J2930; J3010; J3260; J3370

== ENCOUNTER 2016-10-12 14:21 | Inpatient (IN) | payer OTHER ==
[~2016-10-12] VITALS: Ht 188 cm; Wt 80.4 kg
--- NOTE | ~2016-10-12 | CR7 ---
[facility] A Service of [facility] & [facility] RADIOLOGY TEXT RESULTS PATIENT: HUE COTTON LOCATION: C3A 304-01 : [birth year] UNIT #: [id number] AGE: [address]: Susie Guillen MD SEX: M ORDER DR: [id number] [facility] [address] [place], [place] [address] [id number] I MR#: [id number] Acc #: [id number] NAME: HUE COTTON : 1955 SEX: M STUDY DATE/TIME: 10/18/2016 08:05 UNIT: C3A PCU ROOM: 304 STUDY DESCRIPTION: CR Abdomen Single AP View Attending Physician: Susie Guillen M.D. Referring Physician: Shadi Kirkland M.D. Ordering Physician: Jose Guadalupe Delatorre M.D. Primary Care Physician: Shadi Kirkland M.D. MEDICAL IMAGING REPORT This report is preliminary unless electronic signature is present EXAM Abdomen one-view, 10/18/2016 08:05 hours HISTORY 5-6 days of abdominal pain. History of colonoscopy 5-6 days ago. Possible small bowel obstruction. COMPARISON 10/17/2016 FINDINGS Supine consignee film for small bowel follow through was performed. After the film was completed the patient refused to continue to the small bowel follow through is exam. There are vertical midline jose luis present. There is gaseous distension of loops of small bowel similar to 10/17/2016. No supine evidence of free air. IMPRESSION Single supine view obtained as consignee film for small bowel follow through demonstrates persistent gaseous distension of loops of small bowel similar to 10/17/2016. No definite colonic gas is seen. No supine evidence of free air. After completion of the film patient declined to continue on to perform the small bowel follow-through study. Dictated by... Farheen Carlos M.D. THIS IS AN ELECTRONICALLY VERIFIED REPORT Farheen Carlos M.D. at 10/18/2016 4:29 PM Josiah TD: 10/18/2016 10:13 JOB #: [id number] [facility] A Service of [facility] & [facility] RADIOLOGY TEXT RESULTS PATIENT: HUE COTTON LOCATION: C3A 304-01 : [birth year] UNIT #: [id number] AGE: [address]: Susie Guillen MD SEX: M ORDER DR: MEDICAL IMAGING REPORT Page 1 of 1 COPY
--- NOTE | ~2016-10-12 | CT2 ---
[facility] A Service of [facility] & [facility] RADIOLOGY TEXT RESULTS PATIENT: HUE COTTON LOCATION: [facility] 239-01 : [birth year] UNIT #: [id number] AGE: [address]: Susie Guillen MD SEX: M ORDER DR: [id number] [facility] [address] [place], [place] [address] [id number] I MR#: [id number] Acc #: [id number] NAME: UHE COTTON : 1955 SEX: M STUDY DATE/TIME: 10/12/2016 16:16 UNIT: CEDOF ROOM: 41272 STUDY DESCRIPTION: CT Abd and Pelv W Cont Attending Physician: Susie Guillen M.D. Referring Physician: Shadi Kirkland M.D. Ordering Physician: Dandre Mcclelland M.D. Primary Care Physician: Shdai Kirkland M.D. MEDICAL IMAGING REPORT This report is preliminary unless electronic signature is present EXAM CT abdomen and pelvis with contrast INDICATIONS Acute abdominal pain beginning 45 minutes ago. Pain all over the abdomen and pelvis. Previous colectomy with ileostomy. TECHNIQUE CT scan of the abdomen and pelvis was performed following the administration of IV contrast only. Coronal and sagittal reformatted images were obtained. This CT exam was performed with one or more of the following radiation dose reduction techniques: automatic exposure control, adjustment of mA and/or kV according to patient size, and iterative reconstruction. COMPARISON STUDIES Comparison is made with 06/29/2016. FINDINGS There is mild atelectasis/scar in the lung bases. The liver is unremarkable. The gallbladder is contracted. The spleen is unremarkable. The kidneys are unremarkable. The adrenal glands are unremarkable. The pancreas is unremarkable. A gastrostomy tube is in place. There are dilated loops of small bowel present, particularly in the lower abdomen. There is an abrupt transition point to decompressed loops of small bowel located in the right side of the lower abdomen, best seen on coronal image number 25. These findings are consistent with at least a partial small bowel obstruction. The bowel loops distal to the obstruction are decompressed. There is an ileostomy present. PELVIS: Postop changes of near total colectomy. Jackson catheter in the [facility]. [facility] A Service of [facility] & [facility] RADIOLOGY TEXT RESULTS PATIENT: HUE COTTON LOCATION: C2A 239-01 : [birth year] UNIT #: [id number] AGE: [address]: Susie Guillen MD SEX: M ORDER DR: bladder. No free fluid. Bone windows show degenerative changes of the lumbar spine. IMPRESSION 1. There are dilated loops of small bowel, particularly in the lower abdomen, with an abrupt transition point to decompressed loops of small bowel in the right lower abdomen. Findings are most suggestive of a small bowel obstruction, either a high-grade partial obstruction or a complete obstruction. The bowel loops rather distal to the obstruction are decompressed. 2. There is a right lower quadrant ileostomy. 3. Additional findings as described. Dictated by... Pilo Burkett M.D. THIS IS AN ELECTRONICALLY VERIFIED REPORT Pilo Burkett M.D. at 10/13/2016 10:28 AM LAUREEN/steve TD: 10/12/2016 18:51 JOB #: [id number] MEDICAL IMAGING REPORT Page 1 of 1 COPY
--- NOTE | ~2016-10-12 | CR72 ---
[facility] A Service of [facility] & [facility] RADIOLOGY TEXT RESULTS PATIENT: HUE COTTON LOCATION: [address] : [birth year] UNIT #: [id number] AGE: [address]: Susie Guillen MD SEX: M ORDER DR: [id number] [facility] [address] [place], [place] [address] [id number] I MR#: [id number] Acc #: [id number] NAME: HUE COTTON : 1955 SEX: M STUDY DATE/TIME: 10/14/2016 10:14 UNIT: [facility] ROOM: [facility] STUDY DESCRIPTION: CR Chest Single View Portable Attending Physician: Susie Guillen M.D. Referring Physician: Shadi Kirkland M.D. Ordering Physician: Khadijah Tubbs M.D. Primary Care Physician: Shadi Kirkland M.D. MEDICAL IMAGING REPORT This report is preliminary unless electronic signature is present EXAM Chest portable, 10/14/2016 10:14 hours HISTORY 61-year-old man with increasing shortness of air today. COMPARISON 09/28/2016 FINDINGS Portable upright chest demonstrates stable mild cardiomegaly and tortuous aorta. There is underlying emphysematous change with stable right greater than left basilar interstitial change. There is new parenchymal density in the right upper lung since 09/28/2016 likely representing pneumonia. IMPRESSION There is underlying emphysematous change and interstitial change right greater than left lung base. There is new airspace density in the right upper lobe which was not present on 09/28/2016. Finding likely represents acute pneumonia. STAT * RESULT Dictated by... Farheen Carlos M.D. THIS IS AN ELECTRONICALLY VERIFIED REPORT Farheen Carlos M.D. at 10/14/2016 2:37 PM CAYLA/carol TD: 10/14/2016 11:00 JOB #: [id number] [facility] A Service of [facility] & [facility] RADIOLOGY TEXT RESULTS PATIENT: HUE COTTON LOCATION: [facility] CICCU3-24 : 51 UNIT #: [id number] AGE: [address]: Susie Guillen MD SEX: M ORDER DR: MEDICAL IMAGING REPORT Page 1 of 1 COPY
--- NOTE | ~2016-10-12 | FU ---
[facility] Nutrition Therapy DATE: 10/18/16 Patient: HUE COTTON Physician: COLBY [address] Room/Bed: [address] [place] [address], Zip: [place] [address] Admit Date: 10/12/16 Date of : [birth year] Height: 6 2 Weight: 182 82.8 NUTRITION MONITORING/FOLLOW-UP: Reason: Nutrition follow up Anthropometrics: Ht: 6'2" Adm wt: 78.3 kg BMI: 22.2 Wt 10/18: 82.8 kg Labs: (From 10/17) K+ 3.4 BUN 8 Meds: Reglan, D5%, KCl, zofran, protonix I&O's: 2760/1690, last BM 10/18 (350 mL ostomy output) Skin: no changes since previous assessment, no edema Diet: NPO except sips of non-carbonated clear liquids 10/15: Clear liquid diet 10/16: Full liquids then advanced to low fiber diet 10/17: Clear liquid diet 10/18: NPO Assessment: Chart reviewed, events noted. Pt is now POD#6. Pt was transfered to [facility] floor, and was scheduled for small bowel follow through this AM. Pt ended up refusing the SBFT, as he could not tolerate the prep. Surgery ordered reglan and sips of non-carbonated beverages. RN reports that SBFT may be attempted again tomorrow morning. Progression of diet is noted above. RD spoke with the pt at bedside. Pt reports having abdominal pain and distension with intake of clear liquids today. Pt also reports that he is very hungry. RD encouraged the pt to monitor for symptoms of intolerance, and to drink slowly. Pt agreed, and seemed somewhat confused. RN report that this is likely d/t pt receiving diluaded recently. Please see recommendations below. Dx: Inadequate protein-energy intake RT recent bowel surgery, clinical condition AEB NPO status- ACTIVE Intervention: 1. Advance diet per surgical team orders 2. Supplements as appropriate 3. Alternative form of nutrition if unable to tolerate PO Monitoring, Evaluation and Goals: 1. Nutrition; meet the pt's estimated nutrient needs with PO diet or alternative form of nutrition- NOT MET/ IN PROGRESS [facility] Nutrition Therapy DATE: 10/18/16 Patient: HUE COTTON Physician: COLBY Address: [address] Room/Bed: [address] [place] [address], Zip: [place] [address] Admit Date: 10/12/16 Date of : [birth year] Height: 6 2 Weight: 182 82.8 2. GI; promote regular ostomy output/ function- IN PROGRESS 3. Improve labs; K+ and BUN (continue to monitor), glucose improved 4. Weight; monitor, prevent weight loss- IN PROGRESS NEW GOALS (IN ADDITION TO ABOVE): 5. Oral intake; advance diet, tolerate 50-100% of meals Recommendations: 1. Once medically feasible when deemed appropriate per surgical team, advance the pt to a GI soft/ low fiber diet as tolerated. Start with clear liquids + Ensure clear BID and advance as tolerated. 2. If unable to advance to a PO diet, consider initiating nutrition support if appropriate. RD will follow up to provide appropriate recommendations. 3. Replete electrolytes to WNL PRN (K+ low yesterday). Status: Pt is at moderate nutritional risk. RD will continue to follow hospital course per protocol. Respectfully, NICOLASA DENNISON RD, LD Food and Nutritional Services [facility] cc: client file
--- NOTE | ~2016-10-12 | HP ---
Unit #: [id number] #: [id number] Patient: SHELDON RIVSA [id number] [address] [address] [id number] I MR#: [id number] NAME: SHELDON RIVAS ROOM: [facility] Age: 61 Sex: M Admission Date: 10/12/2016 : 1955 Attending Physician: Susie Guillen M.D. Referring Physician: Shadi Kirkland M.D. Primary Care Physician: Shadi Kirkland M.D. HISTORY AND PHYSICAL ADMISSION DIAGNOSES 1. Small bowel obstruction, status post exploratory laparotomy. 2. Altered mental status with increased lethargy, questionable postop respiratory failure. 3. History of recent hypoxemic respiratory failure. 4. History of recent HCAP. 5. History of coronary artery disease. 6. History of diastolic heart failure. 7. Diabetes. HISTORY OF PRESENT ILLNESS Mr. Sheldon Rivas is a 61-year-old gentleman well known to our service secondary to a recent admission when he was admitted for acute hypoxemic respiratory failure secondary acute exacerbation of COPD and healthcare-acquired pneumonia. He was discharged from our service on October 03, 2016. He went to rehab. Apparently, he was readmitted with abdominal pain and was diagnosed with small bowel obstruction overnight and underwent the exploratory laparotomy per LSA this afternoon. He is extremely lethargic and arousable but unable to carry on a conversion. Tends to fall back to sleep. Therefore, I am not able to obtain any further history or review of systems. PAST MEDICAL HISTORY Significant for: 1. Coronary artery disease. 2. COPD. 3. Diastolic heart failure. 4. Diabetes. 5. Anemia of chronic disease. 6. BPH. 7. History of colon resection. 8. History of bladder outlet obstruction. 9. History of recent hypoxemic respiratory failure and recent pneumonia. PAST SURGICAL HISTORY Significant for: 1. Colon resection secondary to toxic megacolon. 2. PEG tube placement. 3. Hemorrhoidectomy. 4. TURP. 5. No surgery hernia repair. 6. Exploratory laparotomy secondary to small bowel obstructions. MEDICATIONS Unit #: [id number] #: [id number] Patient: SHELDON RIVAS Current medications on this gentleman include: 1. Dilaudid 2 mg IV q.2 hours p.r.n. 2. Zofran p.r.n. 3. Combivent and Brovana inhalers along with the IV fluids and IV PPI. ALLERGIES Allergic to codeine, hydralazine and pneumococcal vaccine, also influenzae vaccine. SOCIAL HISTORY No current history of tobacco, alcohol or illicit drugs. FAMILY HISTORY Unremarkable. PHYSICAL EXAMINATION GENERAL: The patient is a 58-year-old gentleman who is extremely lethargic, otherwise in no acute distress. VITAL SIGNS: BP 132/65, heart rate 110, respirations 18, temperature 98. HEENT: Head is atraumatic. Pupils pinpoint. Oropharynx clear. NECK: Supple. No masses, no JVD, no bruits. CHEST: Diminished bilaterally. CARDIOVASCULAR: S1, S2. No murmurs. ABDOMEN: Soft, distended. Decreased bowel sounds in the lower extremities without any cyanosis, clubbing or edema. NEUROLOGICAL: As above. Extremely lethargic and, therefore, unobtainable. DIAGNOSTIC STUDIES LABORATORY: Labs from last night were unremarkable except for blood glucose 136 and white count of 14,000. H and H 11.1 and 35. ASSESSMENT AND PLAN 1. Small bowel obstruction, status post exploratory laparotomy per LSA: Continue supportive care. Symptomatic management. Will drop down Dilaudid. 2. Increased altered mental status with increased lethargy and history of recent hypoxemic respiratory failure. Again, will decrease the Dilaudid to 1 mg q.3-4 hours p.r.n. Will get the stat ABGs and ask pulmonary to follow. 3. History of recent pneumonia, now with leukocytosis: Will start him empirically on some IV Zosyn. Follow up CBC and procalcitonin level in the morning. 4. History of coronary artery disease. 5. History of diastolic heart failure. 6. History of diabetes. 7. GI and DVT prophylaxis: Continue PPI. Will start on heparin 5000 units subcu b.i.d. if okay with LSA and put on SCDs. 8. Also, patient is going to be put on telemetry. Dictated by Tiara Suggs/gisel Unit #: [id number] #: [id number] Patient: SHELDON RIVAS TD: 10/14/2016 05:12 JOB #: [id number] HISTORY AND PHYSICAL Page 1 of 1 X Paul Bolton MD X HISTORY AND PHYSICAL
--- NOTE | ~2016-10-12 | CO ---
Unit #: [id number] #: [id number] Patient: HUE COTTON [id number] [address] [address] [id number] I MR#: [id number] NAME: HUE COTTON ROOM: 304 Age: 61 Sex: M Admission Date: 10/12/2016 : 1955 Attending Physician: Susie Guillen M.D. Primary Care Physician: Shadi Kirkland M.D. Consultation Date: 10/21/2016 CONSULTATION REPORT REASON FOR CONSULTATION Rapid heart rate. HISTORY OF PRESENT ILLNESS This is a 61-year-old male, with the past medical history of chronic diastolic congestive failure, COPD, on O2 chronically, diabetes mellitus, hypertension, hyperlipidemia, and benign prostatic hypertrophy, bladder outlet obstruction, history of colon resection for toxic megacolon, and history of paroxysmal atrial fibrillation, but not on anticoagulation. He had a cardiac cath in 2015, which showed mild luminal irregularities, and an echocardiogram in June 2015, which showed an LVEF of 65% and mild mitral regurgitation. He has had frequent hospital admissions for acute exacerbation of COPD. He presented from the alf with increasing shortness of air and abdominal pain. A CT of the abdomen showed small bowel obstruction. On October 13, 2016, he underwent an exploratory laparotomy with lysis of adhesions. Last night, he had an episode of paroxysmal supraventricular tachycardia and later, he had a run of nonsustained v-tach. His magnesium level at that time was 0.9, and his potassium was 3.1. Today, he is in normal sinus rhythm. He denies palpitations, chest pain, or pressure. PAST MEDICAL HISTORY 1. Chronic diastolic congestive heart failure with an EF of 65%. 2. Cardiac cath in 2015 with mild luminal irregularities. 3. Lexiscan stress test in June 2015 was negative for ischemia. 4. Echo in June 2015 showed an LVEF of 65% and mild MR. 5. Tobacco abuse. 6. Chronic obstructive pulmonary disease, on home oxygen. 7. Diabetes mellitus. 8. Hypertension. 9. Hyperlipidemia. 10. Bladder outlet obstruction. 11. Status post colon resection for toxic megacolon. 12. Paroxysmal atrial fibrillation, not on anticoagulation due to fall. 13. senior care resident for the past year. PAST SURGICAL HISTORY 1. Colon resection secondary to toxic megacolon. 2. PEG tube placement. 3. Hemorrhoidectomy. 4. TURP. 5. Hernia repair. Unit #: [id number] #: [id number] Patient: HUE COTTON 6. Exploratory laparotomy secondary to small bowel obstruction. 7. Cardiac cath in 2005 and 2015. SOCIAL HISTORY He is a resident at [facility] for about a year. He does smoke, about 4 to 5 cigarettes per day. He denies alcohol or illicit drug use. FAMILY HISTORY Denies a family history of premature coronary artery disease. ALLERGIES He is allergic to the influenza vaccine, Codeine, hydralazine, and pneumococcal vaccine. HOME MEDICATIONS 1. Protonix 40 mg p.o. once a day. 2. Bentyl 10 mg p.o. four times a day. 3. Neurontin 100 mg p.o. four times a day. 4. Rapaflo 4 mg p.o. daily. 5. Folic acid 1 mg p.o. daily. 6. Florastor 250 mg p.o. daily. 7. Potassium chloride 22.5 mL p.o. daily. 8. Vitamin D3 of 2000 units p.o. daily. 9. Cardizem 60 mg p.o. daily. 10. Albuterol, Atrovent mini-nebs every 4 hours as needed for shortness of breath. 11. Mag oxide 400 mg p.o. three times a day. 12. Ditropan 5 mg p.o. three times a day. 13. Iron 1 inch p.o. twice a day. 14. Singulair 10 mg p.o. daily. 15. Seroquel 12.5 mg p.o. at bedtime. 16. Acetaminophen 500 mg p.o. every 4 hours as needed for fever. 17. DuoNeb 1 Mini-Neb every four hours as needed for shortness of air. 18. Xanax 0.25 mg p.o. twice a day as needed for anxiety. 19. Lortab 10/325 mg tablet 1 p.o. every 6 hours as needed for pain. 20. Guaifenesin 10 mL p.o. every 8 hours as needed for cough and congestion. 21. Prednisone 20 mg p.o. daily. 22. Promethazine DM syrup 5 mL p.o. every 6 hours as needed for cough. 23. Melatonin 6 mg p.o. at bedtime. REVIEW OF SYSTEMS A 10-point review of systems was conducted and is otherwise negative except for what was stated in HPI. PHYSICAL EXAMINATION VITAL SIGNS: Temperature 98.3, heart rate 76, respiratory rate 16, and blood pressure 117/74. GENERAL: This is a pleasant, 61-year-old male, sitting up in the chair, in no acute distress. HEENT: Head is atraumatic and normocephalic. Pupils are equal and round. Mucous membranes are moist and intact. NECK: Supple. Trachea is midline. No JVD. LUNGS: Inspiratory and expiratory wheezes. Nonlabored respirations. CARDIOVASCULAR: S1 and S2. Regular rate and rhythm. No significant murmurs, rubs, or gallops. ABDOMEN: Soft and rounded. Midline incision with jose luis and dressing. Unit #: [id number] #: [id number] Patient: HUE COTTON Tender to palpation. Bowel sounds hypoactive. EXTREMITIES: Pulses are palpable. No pedal edema. No cyanosis. NEUROLOGIC: Alert and oriented x3. Moves all extremities equally and follows commands without difficulty. DIAGNOSTIC STUDIES LABORATORY RESULTS: Sodium 138, potassium 3.7, chloride 100, BUN 5, creatinine 0.7, glucose 81, magnesium 1.7, TSH 1.38. Hemoglobin 8.8, hematocrit 28, white blood cell count 6.7, and platelets 259. Blood cultures from 10/14/2016, showed no growth after 5 days. IMAGING RESULTS: Chest x-ray on 10/14/2016 showed underlying emphysematous change and interstitial change in the right greater than left lung base. CARDIOVASCULAR RESULTS: EKG shows normal sinus rhythm with PACs, and a ventricular rate of 84. ASSESSMENT 1. Small bowel obstruction, status post exploratory laparotomy with lysis of adhesions on October 13. 2. Paroxysmal supraventricular tachycardia and nonsustained V-tach due to severe hypomagnesemia. 3. Acute on chronic respiratory failure, resolved. 4. Chronic obstructive pulmonary disease. 5. Pneumonia. PLAN 1. Supplement magnesium and potassium. 2. Stop Cardizem. 3. Start beta-zbigniew. 4. Monitor labs with BMP and magnesium levels tomorrow. Thank you for asking us to see this patient. We appreciate the consult. Dictated by... Staci Boykin APRN for Tiara Aguilar/rozina TD: 10/22/2016 12:44 JOB #: [id number] CONSULTATION REPORT Page 1 of 1 X X CONSULTATION REPORT
--- NOTE | ~2016-10-12 | CR4 ---
[facility] A Service of [facility] RADIOLOGY TEXT RESULTS PATIENT: HUE COTTON LOCATION: C2A 239-01 : [birth year] UNIT #: [id number] AGE: [address]: Susie Guillen MD SEX: M ORDER DR: [id number] [facility] [address] [place], [place] [address] [id number] I MR#: [id number] Acc #: [id number] NAME: HUE COTTON : 1955 SEX: M STUDY DATE/TIME: 10/13/2016 8:18 UNIT: A ROOM: [facility] STUDY DESCRIPTION: CR Abdomen Flat Upright or Dec Attending Physician: Susie Guillen M.D. Referring Physician: Shadi Kirkland M.D. Ordering Physician: Eduardo Myrick M.D. Primary Care Physician: Shadi Kirkland M.D. MEDICAL IMAGING REPORT This report is preliminary unless electronic signature is present EXAM Flat and upright abdomen, 10/13. INDICATION Small bowel obstruction. Abdominal pain. Abnormal CT yesterday. FINDINGS Flat and upright views of the abdomen are compared with CT abdomen and pelvis performed 10/12/2016. Again seen are multiple distended small bowel loops compatible with distal small bowel obstruction. Loops measure nearly 4 cm in diameter. There are similar in appearance to the CT scan yesterday. No free air is seen. IMPRESSION Persistent small bowel obstruction, relatively stable from yesterday's CT scan. No free air. Dictated by... Arun Carver Jr., M.D. THIS IS AN ELECTRONICALLY VERIFIED REPORT Arun Carver Jr., M.D. at 10/13/2016 4:38 PM LUIS F/rosamaria TD: 10/13/2016 09:39 JOB #: [id number] MEDICAL IMAGING REPORT Page 1 of 1 COPY
--- NOTE | ~2016-10-12 | OR ---
Unit #: [id number] #: [id number] Patient: HUE COTTON [id number] [address] [address] [id number] I MR#: [id number] NAME: HUE COTTON ROOM: [facility] Date of Procedure: 10/13/2016 Admission Date: 10/12/2016 Surgeon: Brendan Collins III, M.D. : 1955 Attending Physician: Susie Guillen M.D. Referring Physician: Shadi Kirkland M.D. Primary Care Physician: Shadi Kirkland M.D. OPERATIVE REPORT PREOPERATIVE DIAGNOSIS Acute abdomen with small-bowel obstruction. POSTOPERATIVE DIAGNOSIS Small-bowel obstruction secondary to adhesions. PROCEDURES PERFORMED Exploratory laparotomy with lysis of adhesions. ANESTHESIA General. SPECIMENS None. COMPLICATIONS None apparent. ESTIMATED BLOOD LOSS Minimal. INDICATIONS FOR PROCEDURE This is a 61-year-old gentleman, who presented with some abdominal pain and had a small bowel obstruction seen on CT scan. He had recently pulled out a PEG tube and had on physical exam what looked like some evidence of an acute abdomen. His pain did not improve and he was taken for exploration. DESCRIPTION OF PROCEDURE After consent was obtained, the patient was brought to the operating room and placed in the supine position. General anesthetic was administered and I first of all removed ileostomy pouch and closed the ileostomy with a purse-string 2-0 silk suture. I then placed Tegaderm over this. His abdomen was then prepped and draped in standard surgical fashion. I made a midline laparotomy and entered the peritoneal cavity without any incident. I took down some adhesions along the midline and once I was able to elevate the omentum, I followed the small intestine from the ligament of Treitz all the way distally to the ileostomy. He had a transition point at the distal ileum. There appeared to be an adhesive band causing a bowel obstruction. There was no evidence of any bowel ischemia. There was only a little bit of fluid seen in the abdominal cavity upon entry and the gallbladder and liver appeared normal as well. Unit #: [id number] #: [id number] Patient: HUE COTTON I did evaluate the area, where the previous gastrostomy tube was. There was no evidence of any leaking gastric contents. I did divide the area of the partition of the stomach to the abdominal wall. Once this was taken down, I over sewed it with interrupted 2-0 silk imbricating sutures. I had excellent hemostasis. Again, I ran the small bowel and I again confirmed that was the area of the obstruction. I then made sure the NG tube was in good position. All needle, sponge, and instrument counts were correct x2. I reapproximated the midline fascia with interrupted #1 Vicryl sutures. The skin edges were reapproximated with stapling device. At the end of the case, I removed the purse-string suture from the ileostomy and replaced the ileostomy appliance. He tolerated the procedure without any problems and returned to the recovery room in stable condition. Dictated by... Brendan Collins III, M.D. VCL/rozina TD: 10/14/2016 01:09 JOB #: [id number] OPERATIVE REPORT Page 1 of 1 X Brendan Collins III, MD PROCEDURE OPERATIVE NOTE
--- NOTE | ~2016-10-12 | A ---
[facility] Nutrition Therapy DATE: 10/14/16 Patient: HUE COTTON Physician: COLBY Address: [address] Room/Bed: [address], Zip: [place] [address] Admit Date: 10/12/16 Date of : [birth year] Height: 6 2 Weight: 146 66.5 NUTRITIONAL ASSESSMENT: REASON: NPO in ICU nutrition assessment 61 yo male admitted for SBO and abdominal pain PMH: h/o PEG (s/p reversal?- RN reports no PEG ATT), COPD, CAD, chronic respiratory failure, TURP, DM, diastolic CHF, s/p colon resection and ileostomy, BPH Anthropometrics: Ht: 6'2" Wt: 78.3 kg (standing scale) BMI: 22.2 Labs: K+ 5.4 Gluc 120 BUN 25 Ca++ 8.2 Accuchecks 127 (from 10/13) GFR 58.1 Meds: D5%, heparin sodium, protonix, zofran, NaCl I/O & Bowel function: 2558/480, last BM documented as 10/13, however RN reports that the pt has not had any ostomy output and surgery notes they are awaiting ostomy function Skin Integrity: Bruise BUE Ileostomy right abdomen Closed surgical incision to abdomen Edema: none noted Estimated Nutrition Needs: Diet: Strict NPO Assessment: Chart reviewed, events noted. 61 yo male admitted for abdominal pain and SBO, now POD#1 for ex lap and lysis of adhesions and was transfered to ICU on BiPAP. Pt is now off BiPAP per RN report, and has some AMS/ lethargy. Pt has had several admissions to [facility] this year, with previous colon resection with end ileostomy and PEG placement. Per RN report today, the pt no longer has a PEG in place. Per information from [facility] from 10/12/16, the pt was on a regular diet with thin liquids prior to admission. RN reports that the pt was previously taking ice chips following surgery; however, he will not keep his NG tube in (pulls it out) and surgery has made him strict NPO for this reason. No plans for nutrition support at this time. Surgery awaiting ostomy/ stoma function (see note above for bowel function). Based on the pt's previous admission information, his weights appear to be stable throughout the year, with the exception of an outlying bedscale weight this admission. RD used pre-op standing scale weight for BMI calculation. Please see [facility] Nutrition Therapy DATE: 10/14/16 Patient: HUE COTTON Physician: COLBY [address] Room/Bed: [address], Zip: [place] [address] Admit Date: 10/12/16 Date of : [birth year] Height: 6 2 Weight: 146 66.5 recommendations below. Dx: Inadequate protein-energy intake RT recent bowel surgery, clinical condition AEB strict NPO, awaiting ostomy function. Intervention: 1. Advance to PO diet per surgical team Monitoring, Evaluation and Goals: 1. Nutrition; diet vs. nutrition support 2. GI; promote regular ostomy function/ output 3. Improve labs; K+, gluc, BUN 4. Weight; monitor, prevent weight loss Recommendations: 1. Once medically feasible when deemed appropriate per surgical team, recommend advancing the pt to a clear liquid diet + Ensure clear TID. 2. If the pt is able to tolerate clear liquids, advance to a GI soft/ low fiber diet as tolerated. Further dietary restrictions to be determined based on adequacy of PO intake. 3. If the pt is unable to advance to PO diet, consider initiating nutrition support. RD will follow up to provide appropriate recommendations. 4. Please obtain accurate weights and monitor for changes. Pt is at moderate nutritional risk. RD will follow hospital course per protocol. Respectfully, NICOLASA DENNISON, CARMITA, LD [employer] and Nutrition[employer] Services [facility] cc: client file
--- NOTE | ~2016-10-12 | DS ---
Unit #: [id number] #: [id number] Patient: SHELDON RIVAS [id number] [address] [address] [id number] I MR#: [id number] NAME: SHELDON RIVAS ROOM: 304 Age: 61 Sex: M Admission Date: 10/12/2016 : 1955 Discharge Date: 10/21/2016 Attending Physician: Susie Guillen M.D. Referring Physician: Shadi Kirkland M.D. Primary Care Physician: Shadi Kirkland M.D. DISCHARGE SUMMARY FINAL DIAGNOSES 1. Acute on chronic respiratory failure. 2. Pneumonia. 3. Small bowel obstruction. 4. Status post exploratory laparotomy with lyses of adhesions. 5. Chronic obstructive pulmonary disease. 6. Paroxysmal supraventricular tachycardia and (1) due to severe hypomagnesemia, which is replaced. 7. Diabetes mellitus type 2. 8. Hypertension. 9. Hyperlipidemia. 10. Benign prostatic hypertrophy with bladder outlet obstruction. 11. Status post colon resection for toxic megacolon. 12. History of diastolic heart failure. 13. History of anemia. 14. Status post percutaneous endoscopic gastrostomy placement. DISCHARGE MEDICATIONS 1. Folic acid 1 mg daily. 2. Vitamin D3, continue home dose. 3. Rapaflo 4 mg daily. 4. Potassium 22.5 mL p.o. daily. 5. Protonix 40 mg daily. 6. Lortab 10/325 mg 1 tablet q.6 p.r.n. 7. Melatonin 6 mg q.h.s. p.r.n. 8. Singulair 10 mg daily. 9. Iron 150 mg b.i.d. 10. Lopressor 25 mg q.6 hours. 11. Quetiapine 12.5 mg q.h.s. 12. Bentyl 10 mg q.i.d. p.r.n. 13. Neurontin 100 mg q.i.d. 14. Mag oxide 400 mg t.i.d. 15. Acetaminophen 500 mg q.4 p.r.n. 16. Prednisone 20 mg daily for 4 days and then decrease to 10 mg daily. 17. Mini-Neb treatment at home. CONSULTATION DURING HOSPITALIZATION 1. Dr. Khadijah Tubbs from pulmonary service. 2. Dr. Collins from [facility]. 3. Dr. Nichols from cardiology service. PROCEDURES PERFORMED DURING HOSPITALIZATION Exploratory laparotomy with lyses of adhesions for small bowel obstruction. Unit #: [id number] #: [id number] Patient: SHELDON RIVAS DIAGNOSTIC STUDIES LAB WORKUP ON DISCHARGE: Magnesium 1.7. TSH 1.38. Sodium 138, potassium 3.7, chloride 100, BUN less than 5, creatinine 0.7, calcium 8.3. Blood cultures are negative. WBC 6.7, hemoglobin 8.8, hematocrit 28, platelet count 259. Urine culture is negative but yeast was present. SIGNIFICANT IMAGING STUDIES DONE DURING HOSPITALIZATION: Abdominal x-ray, most recent was on 10/18/16, which showed gaseous distention of the loops. No supine evidence of free air. CT scan of the abdomen and pelvis was done on admission, 10/12/16, which showed dilated loops of small bowel particularly in the lower abdomen with an abrupt transition point of decompressed loops of small bowel in the right lower abdomen. Findings suggestive of small bowel obstruction. HOSPITAL COURSE Mr. Sheldon Rivas is a 61-year-old male who was admitted by my colleague, Dr. Bolton, with altered mental status and abdominal pain and acute hypoxic respiratory failure. The patient's admitting diagnoses were small bowel obstruction, acute exacerbation of COPD and possible pneumonia. The patient was seen by Dr. Collins because of the small bowel obstruction. The patient had exploratory laparotomy with lyses of adhesions done on 10/13/16. The patient is doing well. The patient is able to tolerate diet at this time. The patient was in the ICU after the procedure because he went into acute respiratory failure. The patient was started on IV antibiotics - broad-spectrum antibiotics in the beginning and later on tapered it down. The patient had a lengthy stay during hospitalization but is doing much better at this time. Has tolerated diet for more than 24 hours. On 10/20 the patient had ventricular tachycardia, and cardiology was consulted. Magnesium level was done, which was very low, which has been replaced. The patient will continue p.o. magnesium. PHYSICAL EXAMINATION VITAL SIGNS ON DISCHARGE: Blood pressure 117/74, respiratory rate 16, pulse 76, temperature 98.3, oxygen saturation 99%. HEAD: Normocephalic. RESPIRATORY: Chest has fair air entry. CVS: Regular rhythm. ABDOMEN: Soft. Mild tenderness is present. Dressing is present. EXTREMITIES: Negative edema. DISCHARGE INSTRUCTIONS 1. The patient is being discharged to [facility] on medications as per med/rec. 2. BMP and magnesium level and CBC to be done in 2 days. 3. Continue PT/OT. 4. Plan of care has been discussed with the patient. 5. Follow up with Dr. Collins in 1 week. Dictated by... Tiara Barragan/sia TD: 10/21/2016 13:50 JOB #: [id number] Unit #: [id number] #: [id number] Patient: SHELDON RIVAS DISCHARGE SUMMARY Page 1 of 1 X Susie Guillen MD X DISCHARGE SUMMARY
--- NOTE | ~2016-10-12 | XA166 ---
[facility] A Service of [facility] RADIOLOGY TEXT RESULTS PATIENT: HUE COTTON LOCATION: C3A 304-01 : [birth year] UNIT #: [id number] AGE: [address]: Susie Guillen MD SEX: M ORDER DR: [id number] [facility] [address] [place], [place] [address] [id number] I MR#: [id number] Acc #: [id number] NAME: HUE COTTON : 1955 SEX: M STUDY DATE/TIME: 10/19/2016 13:40 UNIT: C3A PCU ROOM: 304 STUDY DESCRIPTION: XA PICC Line Placement WO Port Attending Physician: Susie Guillen M.D. Referring Physician: Shadi Kirkland M.D. Ordering Physician: Carlos Kelly M.D. Primary Care Physician: Shadi Kirkland M.D. MEDICAL IMAGING REPORT This report is preliminary unless electronic signature is present EXAM Right arm PICC line insertion 10/19/2016 HISTORY IV access needed PRE-PROCEDURE The procedure was explained to the patient and/or patient auto service representative including risks, benefits, potential complications and potential for alternative forms of treatment. Informed consent was obtained, and prior to initiating the procedure a formal timeout procedure was performed. PROCEDURE Using full standard sterile barrier technique, including caps, gowns, gloves, masks, as well as sterile skin preparation and standard sterile draping, the right arm was prepped and draped in the usual fashion, and real-time sterile ultrasound guidance was used to localize a right arm vein and to confirm vessel patency. A single spot image was recorded. After local anesthesia with 1% Xylocaine, the vein was punctured using real-time sterile ultrasound guidance, and an 0.018 guidewire was advanced into the superior vena cava, using fluoroscopic guidance. A 5-Ethiopian dual-lumen PICC was then measured and deployed with the tip positioned in the superior vena cava. The position of the line was documented with a radiographic image. The line was secured in place with an adhesive dressing and an antibiotic patch was applied. Total fluoro time was 0.1 minutes. IMPRESSION Successful placement of a 5-Ethiopian dual-lumen Power PICC via the arm under ultrasound and fluoroscopic guidance. The tip of the PICC is in good position in the superior vena cava. [facility] A Service of [facility] RADIOLOGY TEXT RESULTS PATIENT: HUE COTTON LOCATION: C3A 304-01 : [birth year] UNIT #: [id number] AGE: [address]: Susie Guillen MD SEX: M ORDER DR: Dictated by... Fredy Sebastian M.D. THIS IS AN ELECTRONICALLY VERIFIED REPORT Fredy Sebastian M.D. at 10/20/2016 2:54 PM NANCY/louis TD: 10/19/2016 21:34 JOB #: [id number] MEDICAL IMAGING REPORT Page 1 of 1 COPY
--- NOTE | ~2016-10-12 | CO ---
Unit #: [id number] #: [id number] Patient: HUE COTTON [id number] [address] [address] [id number] I MR#: [id number] NAME: HUE COTTON ROOM: [facility] Age: 61 Sex: M Admission Date: 10/12/2016 : 1955 Attending Physician: Susie Guillen M.D. Primary Care Physician: Shadi Kirkland M.D. Consultation Date: 10/14/2016 CONSULTATION REPORT REASON FOR CONSULT ICU management. ADMITTING DIAGNOSES Abdominal pain, nausea, and vomiting. HISTORY OF PRESENT ILLNESS This is a well-known, 61-year-old, male who is well known to our service from previous admission who presented to the emergency room with abdominal pain, nausea, and vomiting. CT abdomen was consistent with small bowel obstruction and patient had to undergo an exploratory laparotomy with adhesion lysis. Yesterday, patient was noted to be extremely lethargic and tachycardic. Stat blood gas was consistent with acute hypercarbic respiratory failure and patient had to be transferred to the ICU for further evaluation and management. Patient was placed on BiPAP and, upon mental status improvement, she started becoming very restless and agitated and BiPAP had to be discontinued. Currently, patient is moaning and screaming in pain and demanding more pain medicine. PAST MEDICAL HISTORY 1. Coronary artery disease. 2. COPD. 3. Diastolic congestive heart failure. 4. Diabetes. 5. Chronic anemia. 6. Prostatic hypertrophy. PAST SURGICAL HISTORY 1. Colon resection secondary to toxic megacolon. 2. PEG tube placement. 3. Exploratory laparotomy with adhesion lysis. 4. Hemorrhoidectomy. 5. TURP. MEDICATIONS 1. Zosyn. 2. Dilaudid. 3. Zofran. 4. Combivent. 5. Brovana. 6. PPI. Unit #: [id number] #: [id number] Patient: HUE COTTON ALLERGIES 1. Codeine. 2. Hydralazine. 3. Pneumococcal vaccine. SOCIAL HISTORY No history of alcohol, drug abuse, or smoking. FAMILY HISTORY Unremarkable. PHYSICAL EXAMINATION GENERAL: The patient is in pain, screaming. VITAL SIGNS: Blood pressure 122/62, respiratory rate 16, and heart rate 125. HEENT: Atraumatic and normocephalic. PERRLA. EOMI. NECK: Supple. No JVD. No lymphadenopathy. CHEST: Decreased breath sounds bilaterally with bilateral rhonchi at the bases. HEART: S1 and S2. Sinus tachycardia. ABDOMEN: Tender to deep palpation. SKIN: No rashes. SAMPLER PICKUP: Awake, alert, and oriented x2 at this point; but he was lethargic upon presentation to the ICU. DIAGNOSTIC STUDIES LABORATORY: pH 7.28 and CO2 66. ASSESSMENT 1. Acute on chronic hypoxic hypercarbic respiratory failure. 2. Toxic metabolic encephalopathy, likely drug related. 3. Small bowel obstruction. 4. Chronic obstructive pulmonary disease. 5. Malnutrition. 6. Chronic anemia. 7. Acute kidney injury. 8. Hyperkalemia. PLAN 1. Will continue BiPAP as tolerated. Currently, it is off due to agitation. 2. Will minimize IV narcotics as possible. 3. Will keep NPO and change his IV fluids to remove potassium due to hyperkalemia. 4. Broad-spectrum antibiotics for possible abdominal versus, less likely, aspiration pneumonia. 5. DVT and GI prophylaxes. Critical care time spent on this patient was 32 minutes. I would like to thank Dr. Bolton for allowing me to be part of this patient's care. Dictated by... Aaron Tubbs M.D. Unit #: [id number] #: [id number] Patient: HUE COTTON DENIS/elayne TD: 10/15/2016 06:08 JOB #: [id number] CONSULTATION REPORT Page 1 of 1 X AARON HAMPTON MD CONSULTATION REPORT
--- NOTE | ~2016-10-12 | EKG ---
PATIENT: HUE COTTON UNIT #: [id number] Ventricular Rate: 87 BPM Atrial Rate: 87 BPM P-R Interval: 118 ms QRS Duration: 92 ms Q-T Interval: 340 ms QTC Calculation(Bezet): 409 ms P Mchenry: 73 degrees Calculated R Mchenry: 67 degrees Calculated T Mchenry: 72 degrees Diagnosis Line: Normal sinus rhythm Diagnosis Line: Normal ECG Diagnosis Line: When compared with ECG of 28-SEP-2016 04:08, Diagnosis Line: Premature ventricular complexes are no longer Diagnosis Line: Present Diagnosis Line: Confirmed by GUALBERTO TEJEDA MD ([id number]) on 10/13/2016 Diagnosis Line: 7:38:15 PM INTERPRETING MD: ILEANA HEREDIA
--- NOTE | ~2016-10-12 | EKG ---
PATIENT: HUE COTTON UNIT #: [id number] Ventricular Rate: 86 BPM Atrial Rate: 86 BPM P-R Interval: 118 ms QRS Duration: 94 ms Q-T Interval: 370 ms QTC Calculation(Bezet): 442 ms P [place]: -5 degrees Calculated R [place]: 36 degrees Calculated T [place]: 41 degrees Diagnosis Line: Normal sinus rhythm with sinus arrhythmia Diagnosis Line: Nonspecific ST and T wave abnormality Diagnosis Line: Abnormal ECG Diagnosis Line: When compared with ECG of 12-OCT-2016 15:05, Diagnosis Line: No significant change was found Diagnosis Line: Confirmed by GUALBERTO TEJEDA MD ([id number]) on 10/21/2016 Diagnosis Line: 7:12:23 PM INTERPRETING MD: ILEANA HEREDIA
--- NOTE | ~2016-10-12 | CR4 ---
[facility] A Service of [facility] RADIOLOGY TEXT RESULTS PATIENT: HUE COTTON [facility] 304- : [birth year] UNIT #: [id number] AGE: [address]: Susie Guillen MD SEX: M ORDER DR: [id number] [facility] [address] [facility] [place], [place] [address] [id number] I MR#: [id number] Acc #: [id number] NAME: HUE COTTON : 1955 SEX: M STUDY DATE/TIME: 10/17/2016 8:14 UNIT: [id number] PCU ROOM: [facility] STUDY DESCRIPTION: CR Abdomen Flat Upright or Dec Attending Physician: Susie Guillen M.D. Referring Physician: Shadi Kirkland M.D. Ordering Physician: Eduardo Myrick M.D. Primary Care Physician: Shadi Kirkland M.D. MEDICAL IMAGING REPORT This report is preliminary unless electronic signature is present EXAM Flat and upright views of the abdomen INDICATION Generalized abdominal pain. Small bowel obstruction for the past month. PROCEDURE Upright and supine views of the abdomen and pelvis. COMPARISON 10/13/2016. FINDINGS Air-filled small bowel loops persist and measure up to 5 cm. Paucity of colonic gas. No free air. IMPRESSION Similar bowel gas pattern to 10/13/2016 with relative paucity of colonic gas most in keeping with a small bowel obstruction pattern. Dictated by... Abdirahman Garcia M.D. THIS IS AN ELECTRONICALLY VERIFIED REPORT Abdirahman Garcia M.D. at 10/18/2016 8:14 AM EED/lacey TD: 10/17/2016 09:02 JOB #: [id number] MEDICAL IMAGING REPORT [facility] A Service [facility] RADIOLOGY TEXT RESULTS PATIENT: HUE COTTON LOCATION: [facility] 304- : 53 UNIT #: [id number] AGE: [address]: Susie Guillen MD SEX: M ORDER DR: Page 1 of 1 COPY
[~2016-10-12 14:21] MED LIST changes: +ALPRAZOLAM PO; +BENTYL10 M1 PO; +DUONEB INH; +GERI-TUSSI100 MG/5 M PO; +LORTAB 10-3251 EACH PO; +MAG-OX 400400 M1 PO; +MAPAP500 M1 PO; +POTASSIUM20 MEQ/11 PO; +PROTONIX PO; +RAPAFLO4 MG PO; +TAB-A-VITE PO; +VITAMIN D32000 UNI1 PO
[2016-10-12 15:20] LABS: BASOPHIL% 0.3 % (0-2.5); EOSINOPHIL# 0.1 X10e3 (0-0.7); EOSINOPHIL% 0.9 % (0.0-7.0); HEMOGLOBIN 11.1 gm/dL (13.0-16.0); LYMPHOCYTE# 1.6 X10e3 (1.0-3.5); MEAN CELL VOLUME 78.2 FL (83-96); MEAN CORPUSCULAR HEMOGLOBIN 24.7 PG (28-34); MEAN CORPUSCULAR HGB CONC 31.6 g/dL (30-36); MEAN PLATELET VOLUME 7.5 FL (6.5-11.5); MONOCYTE# 0.6 X10e3 (0-1.0); MONOCYTE% 4.5 % (3.0-12.0); NEUTROPHIL# 11.9 X10e3 (1.5-7.1); NEUTROPHIL% 83.3 % (40-75); PLATELET COUNT 401 X10e3 (140-420); RED BLOOD COUNT 4.48 X10e (3.90-5.60); RED CELL DISTRIBUTION WIDTH 19.2 % (11.0-15.5); WHITE BLOOD COUNT 14.3 X10e3 (4.0-10.5)
[2016-10-12 15:21] LABS: DIFF IND NO
[2016-10-12 15:30] LABS: URINE SOURCE CLEAN CATCH
[2016-10-12 15:47] LABS: URINE APPEARANCE CLEAR; URINE BILIRUBIN NEG (NEG); URINE BLOOD NEG (NEG); URINE COLOR YELLOW; URINE GLUCOSE NEG (NEG); URINE KETONE NEG (NEG); URINE LEUKOCYTE ESTERASE 2+ (NEG); URINE NITRATE NEG (NEG); URINE PH 5.5 (5-8); URINE PROTEIN NEG (NEG); URINE UROBILINOGEN 0.2 MG/DL (NEG)
[2016-10-12 15:49] LABS: ALBUMIN SERUM 3.5 g/dL (3.5-5.0); BILIRUBIN, DIRECT 0.1 mg/dL (0.0-0.2); BILIRUBIN,INDIRECT 0.4 mg/dL (0.0-0.9); BILIRUBIN,TOTAL 0.5 mg/dL (0.2-2.0); BUN/CREATININE RATIO 17.14; CALCIUM SERUM 9.2 mg/dL (8.4-10.2); CREATININE SERUM 0.7 mg/dL (0.6-1.4); GLOM FILT RATE Estimated 100.5 mL/min (>60); POTASSIUM 4.9 mmol/L (3.5-5.1); PROTEIN TOTAL SERUM 7.3 g/dL (6.0-8.3)
[2016-10-12 15:50] LABS: CULTURE INDICATED? YES; URINE BACTERIA AUWI NEG (NEGATIVE); URINE SQUAMOUS EPITHELIAL CELL NONE SEEN /[HPF]
[2016-10-12] MEDS ORDERED: PREDNISONE PO (17:12)
[2016-10-12] MEDS ORDERED: BENTYL10 MG PO (17:12)
[2016-10-12] MEDS ORDERED: MELATIN3 MG PO (17:13)
[2016-10-12] MEDS ORDERED: PROMETHAZINE D118 ML PO (17:13)
[2016-10-13 20:07] LABS: ARTERIAL BLD GAS O2 SATURATION 83.8 % (90.0-100.0); ARTERIAL BLOOD GAS CARBOXY HB 1.3 %sat (0.0-9.0); ARTERIAL BLOOD GAS HCO3 32.3 mmol/L; ARTERIAL BLOOD GAS MET HB 1.3 %sat (0.0-2.0); ARTERIAL BLOOD GAS pH 7.212 (7.350-7.450)
[2016-10-13 20:11] LABS: ARTERIAL BLOOD GAS ALLEN TEST Y; ARTERIAL BLOOD GAS ART SITE LEFT RADIAL; ARTERIAL BLOOD GAS DELIVERY NASAL CANNULA; ARTERIAL BLOOD GAS PCO2 80.5 mmHg (35.0-45.0); ARTERIAL BLOOD GAS PO2 58.4 mmHg (80.0-100); ARTERIAL DRAW? YES
[2016-10-13 22:01] LABS: ARTERIAL BLD GAS O2 SATURATION 87.5 % (90.0-100.0); ARTERIAL BLOOD GAS CARBOXY HB 1.1 %sat (0.0-9.0); ARTERIAL BLOOD GAS HCO3 31.2 mmol/L
[2016-10-13 22:02] LABS: ARTERIAL BLOOD GAS ALLEN TEST NORMAL; ARTERIAL BLOOD GAS ART SITE LEFT RADIAL; ARTERIAL BLOOD GAS DELIVERY NASAL CANNULA; ARTERIAL BLOOD GAS PCO2 66.4 mmHg (35.0-45.0); ARTERIAL BLOOD GAS PO2 59.5 mmHg (80.0-100); ARTERIAL DRAW? YES
[2016-10-14 06:19] LABS: BUN/CREATININE RATIO 19.23; CALCIUM SERUM 8.2 mg/dL (8.4-10.2); CREATININE SERUM 1.3 mg/dL (0.6-1.4); GLOM FILT RATE Estimated 58.1 mL/min (>60); POTASSIUM 5.4 mmol/L (3.5-5.1)
[2016-10-14 06:41] LABS: BASOPHIL% 0.2 % (0-2.5); EOSINOPHIL# 0.1 X10e3 (0-0.7); EOSINOPHIL% 0.6 % (0.0-7.0); HEMATOCRIT 32.5 % (38.0-50.0); LYMPHOCYTE# 2.4 X10e3 (1.0-3.5); LYMPHOCYTE% 13.6 % (17.0-45.0); MEAN CELL VOLUME 80.4 FL (83-96); MEAN CORPUSCULAR HEMOGLOBIN 24.7 PG (28-34); MEAN CORPUSCULAR HGB CONC 30.7 g/dL (30-36); MEAN PLATELET VOLUME 8.1 FL (6.5-11.5); MONOCYTE# 1.4 X10e3 (0-1.0); MONOCYTE% 8.1 % (3.0-12.0); NEUTROPHIL# 13.9 X10e3 (1.5-7.1); NEUTROPHIL% 77.5 % (40-75); PLATELET COUNT 322 X10e3 (140-420); RED BLOOD COUNT 4.04 X10e (3.90-5.60); RED CELL DISTRIBUTION WIDTH 18.9 % (11.0-15.5); WHITE BLOOD COUNT 17.9 X10e3 (4.0-10.5)
[2016-10-14 06:50] LABS: DIFF IND YES
[2016-10-14 07:43] LABS: PLATELET ESTIMATE NORMAL (NORMAL)
[2016-10-14 07:44] LABS: ANISOCYTOSIS SL; MICROCYTOSIS SL
[2016-10-15 03:38] LABS: ARTERIAL BLD GAS O2 SATURATION 94.2 % (90.0-100.0); ARTERIAL BLOOD GAS CARBOXY HB 1.3 %sat (0.0-9.0); ARTERIAL BLOOD GAS HCO3 31.4 mmol/L; ARTERIAL BLOOD GAS MET HB 1.5 %sat (0.0-2.0); ARTERIAL BLOOD GAS PO2 84.9 mmHg (80.0-100); ARTERIAL BLOOD GAS pH 7.307 (7.350-7.450)
[2016-10-15 03:40] LABS: ARTERIAL BLOOD GAS ART SITE LEFT BRACHIAL; ARTERIAL BLOOD GAS DELIVERY OXYMIZER; ARTERIAL BLOOD GAS PCO2 62.7 mmHg (35.0-45.0); ARTERIAL DRAW? YES
[2016-10-15 05:44] LABS: BASOPHIL% 0.4 % (0-2.5); EOSINOPHIL# 0.1 X10e3 (0-0.7); EOSINOPHIL% 1.6 % (0.0-7.0); HEMOGLOBIN 9.1 gm/dL (13.0-16.0); LYMPHOCYTE# 1.5 X10e3 (1.0-3.5); LYMPHOCYTE% 17.1 % (17.0-45.0); MEAN CELL VOLUME 80.2 FL (83-96); MEAN CORPUSCULAR HEMOGLOBIN 25.2 PG (28-34); MEAN CORPUSCULAR HGB CONC 31.4 g/dL (30-36); MEAN PLATELET VOLUME 8.3 FL (6.5-11.5); MONOCYTE# 0.9 X10e3 (0-1.0); MONOCYTE% 10.6 % (3.0-12.0); NEUTROPHIL# 6.2 X10e3 (1.5-7.1); NEUTROPHIL% 70.3 % (40-75); PLATELET COUNT 237 X10e3 (140-420); RED BLOOD COUNT 3.61 X10e (3.90-5.60); RED CELL DISTRIBUTION WIDTH 18.9 % (11.0-15.5)
[2016-10-15 05:55] LABS: DIFF IND NO; WHITE BLOOD COUNT 8.8 X10e3 (4.0-10.5)
[2016-10-15 06:27] LABS: ALBUMIN SERUM 2.3 g/dL (3.5-5.0); BILIRUBIN,TOTAL 0.7 mg/dL (0.2-2.0); BUN/CREATININE RATIO 25.71; CALCIUM SERUM 8.1 mg/dL (8.4-10.2); CREATININE SERUM 0.7 mg/dL (0.6-1.4); GLOM FILT RATE Estimated 100.5 mL/min (>60); MAGNESIUM 1.4 mg/dL (1.6-3.0); PHOSPHOROUS 2.2 mg/dL (2.5-4.6); POTASSIUM 4.2 mmol/L (3.5-5.1); PROTEIN TOTAL SERUM 5.7 g/dL (6.0-8.3)
[2016-10-16 06:40] LABS: BASOPHIL% 0.4 % (0-2.5); EOSINOPHIL# 0.3 X10e3 (0-0.7); EOSINOPHIL% 3.2 % (0.0-7.0); HEMATOCRIT 29.4 % (38.0-50.0); HEMOGLOBIN 9.1 gm/dL (13.0-16.0); LYMPHOCYTE# 1.7 X10e3 (1.0-3.5); LYMPHOCYTE% 19.9 % (17.0-45.0); MEAN CELL VOLUME 81.3 FL (83-96); MEAN CORPUSCULAR HGB CONC 30.8 g/dL (30-36); MEAN PLATELET VOLUME 7.7 FL (6.5-11.5); MONOCYTE# 0.9 X10e3 (0-1.0); MONOCYTE% 10.1 % (3.0-12.0); NEUTROPHIL# 5.8 X10e3 (1.5-7.1); NEUTROPHIL% 66.4 % (40-75); PLATELET COUNT 236 X10e3 (140-420); RED BLOOD COUNT 3.62 X10e (3.90-5.60); RED CELL DISTRIBUTION WIDTH 18.8 % (11.0-15.5); WHITE BLOOD COUNT 8.7 X10e3 (4.0-10.5)
[2016-10-16 06:41] LABS: DIFF IND NO
[2016-10-16 07:13] LABS: BUN/CREATININE RATIO 17.14; CALCIUM SERUM 8.3 mg/dL (8.4-10.2); CREATININE SERUM 0.7 mg/dL (0.6-1.4); GLOM FILT RATE Estimated 100.5 mL/min (>60); POTASSIUM 3.8 mmol/L (3.5-5.1)
[2016-10-17 05:48] LABS: HEMOGLOBIN 8.8 gm/dL (13.0-16.0); MEAN CELL VOLUME 79.1 FL (83-96); MEAN CORPUSCULAR HGB CONC 31.6 g/dL (30-36); MEAN PLATELET VOLUME 7.6 FL (6.5-11.5); RED BLOOD COUNT 3.54 X10e (3.90-5.60); RED CELL DISTRIBUTION WIDTH 18.2 % (11.0-15.5); WHITE BLOOD COUNT 6.7 X10e3 (4.0-10.5)
[2016-10-17 06:46] LABS: BUN/CREATININE RATIO 11.42; CALCIUM SERUM 8.5 mg/dL (8.4-10.2); CREATININE SERUM 0.7 mg/dL (0.6-1.4); GLOM FILT RATE Estimated 100.5 mL/min (>60); POTASSIUM 3.4 mmol/L (3.5-5.1)
[2016-10-19 05:48] LABS: CALCIUM SERUM 8.4 mg/dL (8.4-10.2); CARBON DIOXIDE 30 mmol/L (22-31); CHLORIDE 100 mmol/L (100-111); CREATININE SERUM 0.7 mg/dL (0.6-1.4); GLOM FILT RATE Estimated 100.5 mL/min (>60); GLUCOSE FASTING 104 mg/dL (70-110); POTASSIUM 3.1 mmol/L (3.5-5.1); SODIUM 140 mmol/L (135-145)
[2016-10-19 05:53] LABS: BLOOD UREA NITROGEN <5 mg/dL (9-23); BUN/CREATININE RATIO 7.14
[2016-10-20 06:18] LABS: CALCIUM SERUM 8.2 mg/dL (8.4-10.2); CARBON DIOXIDE 32 mmol/L (22-31); CHLORIDE 101 mmol/L (100-111); CREATININE SERUM 0.7 mg/dL (0.6-1.4); GLOM FILT RATE Estimated 100.5 mL/min (>60); GLUCOSE FASTING 98 mg/dL (70-110); POTASSIUM 3.5 mmol/L (3.5-5.1); SODIUM 138 mmol/L (135-145)
[2016-10-20 06:19] LABS: BLOOD UREA NITROGEN <5 mg/dL (9-23); BUN/CREATININE RATIO 7.14
[2016-10-20 17:53] LABS: CALCIUM SERUM 8.3 mg/dL (8.4-10.2); CARBON DIOXIDE 30 mmol/L (22-31); CHLORIDE 100 mmol/L (100-111); CREATININE SERUM 0.7 mg/dL (0.6-1.4); GLOM FILT RATE Estimated 100.5 mL/min (>60); GLUCOSE FASTING 81 mg/dL (70-110); POTASSIUM 3.7 mmol/L (3.5-5.1); SODIUM 138 mmol/L (135-145)
[2016-10-20 17:58] LABS: BLOOD UREA NITROGEN <5 mg/dL (9-23); BUN/CREATININE RATIO 7.14
[2016-10-20 17:59] LABS: MAGNESIUM 0.9 mg/dL (1.6-3.0)
== END 2016-10-21 15:36 | DRG 329 ==
LOC: CED 14:21 → CEDOF 18:49 → CICCU3 18:49 → C3A PCU 18:49 → C2A 19:45 → C4C 10-13 17:50 → CICCU3 10-13 20:44 → CICCU2 10-14 20:06 → C3A PCU 10-15 16:05
PROVIDERS: Emergency Medicine; Hospitalist; Internal Medicine Pulmonary Disease; Physician Assistant Medical; Surgery
PROC: 0DN80ZZ Release Small Intestine, Open Approach (ICD-10-PCS; principal; 2016-10-13 11:00)
PROC: 0DBB0ZZ Excision of Ileum, Open Approach (ICD-10-PCS; 2016-10-13 11:00)
PROC: 02HV33Z Insertion of Infusion Device into Superior Vena Cava, Percutaneous Approach (ICD-10-PCS; 2016-10-19)
PROC: B548ZZA Ultrasonography of Superior Vena Cava, Guidance (ICD-10-PCS; 2016-10-19)
DX: K56.5 Intestinal adhesions [bands] with obstruction (postinfection) (principal); J96.21 Acute and chronic respiratory failure with hypoxia; G92 Toxic encephalopathy; J18.9 Pneumonia, unspecified organism; N17.9 Acute kidney failure, unspecified; I11.0 Hypertensive heart disease with heart failure; E46 Unspecified protein-calorie malnutrition; I50.32 Chronic diastolic (congestive) heart failure; J96.22 Acute and chronic respiratory failure with hypercapnia; J44.0 Chronic obstructive pulmonary disease with (acute) lower respiratory infection; J44.1 Chronic obstructive pulmonary disease with (acute) exacerbation; I47.1 Supraventricular tachycardia; N13.8 Other obstructive and reflux uropathy; R41.82 Altered mental status, unspecified; E11.9 Type 2 diabetes mellitus without complications; Z68.23 Body mass index [BMI] 23.0-23.9, adult; E87.5 Hyperkalemia; D53.9 Nutritional anemia, unspecified; K56.7 Ileus, unspecified; Z88.7 Allergy status to serum and vaccine; Z88.5 Allergy status to narcotic agent; E83.42 Hypomagnesemia; E78.5 Hyperlipidemia, unspecified; N40.1 Benign prostatic hyperplasia with lower urinary tract symptoms; Z93.2 Ileostomy status
CPT/HCPCS: 36415; 36600; 71010; 74000; 74020; 74177; 76937; 77001; 80048; 80053; 80076; 81003; 82150; 82308; 82803; 82947; 83605; 83690; 83735; 84100; 84443; 85025; 85027; 87040; 87086; 93005; 94640; 94660; 94760; 94761; 96374; 96375; 97110; 97116; 97163; 97165; 97530; 97535; 99285; C1751; C9113; G8978-GP; G8979-GP; G8987-GO; G8988-GO; J0330; J1170; J1630; J1644; J1650; J2270; J2370; J2405; J2543; J2710; J2765; J3010; J3475; J3480; J7042; Q9967